=== PATIENT | female | born 2005 | race Caucasian/White ===

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

== ENCOUNTER → 2024-04-11 | Outpatient (CLI) | payer OTHER, SELFPAY ==
[2024-04-11 17:52] LABS: Absolute Lymphocyte Count 2.06 X10^3/uL (0.83-4.51); Absolute Neutrophil Count 4.2 X10^3/uL (2.0-7.7); Basophil# 0.07 X10^3/uL; Eosinophil# 0.17 X10^3/uL; Eosinophils% 2.4 % (0-5); Hematocrit 36.1 % (37-47); Hemoglobin 10.8 g/dL (12.0-15.0); Lymphocyte # 2.06 X10^3/ul (0.83-4.51); Lymphocyte % 29.1 % (19-41); Mean Corp Hgb Conc 29.9 g/dL (32-36); Mean Platelet Vol. 10.5 fl (6.2-12.0); Monocyte# 0.52 X10^3/uL; Monocyte% 7.3 % (0-10); NRBC Flagged by Analyzer 0 % (0-5); Neutrophil # 4.24 X10^3/uL (2.7-7.7); Neutrophil % 59.9 % (47-70); Platelet Count 362 K/mm3 (150-450); RBC Distribution Width CV 16.3 % (11.6-14.6); RBC Distribution Width SD 44.9 fl (35.1-43.9); Red Blood Count 4.69 M/mm3 (4.2-5.4); White Blood Count 7.1 K/mm3 (4.4-11.0)
[2024-04-11 18:32] LABS: Ferritin 4 ng/mL (8-252); Iron 16 ug/dL (50-170); Iron Binding Capacity,Total 602 ug/dL (250-450); PERCENT IRON SATURATION 2.7 % (15.0-55.0)
[2024-04-11 19:49] LABS: Vitamin B12 331 pg/mL (211-911)
== END | disposition home or self-care (01) ==
LOC: MFPLAB 14:23
PROVIDERS: PCP Family Medicine; Visit Provider Family Medicine
DX: D50.9 Iron deficiency anemia, unspecified (principal)
CPT/HCPCS: 36415; 82607; 82728; 82746; 83540; 83550; 85025

== ENCOUNTER 2025-01-20 15:36 | Emergency (ER) | payer OTHER, SELFPAY ==
[2025-01-20 15:36] VITALS: BP 123/92; PULSE 112; RESP 18; TEMP 36.6; O2SAT 100; BMI 23.0
--- NOTE | 2025-01-20 16:08 | EDS_ITS ---
HPI History of Present Illness Chief Complaint: Dizziness Informant: patient Onset/Context/Timing Onset: Today and Hours (3) Context: Gradual Onset Timing: Continuous Quality: Squeezing Location: Chest Worsened by: Nothing Relieved by: Nothing Narrative Narrative: Patient presents with shaky feeling that began today while she was at work. Patient states it came on gradually. Patient states that she felt some squeezing in her chest. Patient states nothing makes it worse and nothing makes it better. Patient admits to some shortness of breath. Patient denies any nausea or vomiting. Patient denies any diaphoresis. Patient admits to some blurred vision. Patient also admits to mild headache. Patient denies any fevers or chills. PFSH PFSH Medical History no medical history no medical history Home Medications ?Medication ?Instructions ?Recorded ?Last Taken ?Type Albuterol Inhaler 2 puff inhalation Q6H PRN SD N Sob 12/16/17 Unknown History &/Or Wheezing Allergy/AdvReac Type Severity Reaction Status Date / Time No Known Allergies Allergy Verified 01/20/25 15:40 Surgical History no surgical history no surgical history Social History (Updated 01/20/25 @ 16:[address] Reynold Nolasco, DO) Smoking Status: Current every day smoker tobacco type: e-cigarettes Electronic Cigarette Use: with nicotine ROS ROS ED Constitutional Constitutional ED: Denies chills or fever(s) Eyes Eyes: Reports blurry vision; Denies change in vision ENT ENT ED: Denies rhinorrhea or sore throat Cardiovascular Cardiovascular: Reports chest pain; Denies palpitations Respiratory/Chest Respiratory/Chest: Reports dyspnea; Denies cough Gastrointestinal Gastrointestinal: Denies nausea or vomiting Genitourinary Genitourinary ED: Denies dysuria or hematuria Musculoskeletal Musculoskeletal: Reports neck pain; Denies back pain Integumentary Denies abscess or rash Neurologic Neurologic: Reports headache(s); Denies weakness Allergic/Immunologic Allergic/Immunologic ED: Denies mouth swelling or urticaria EXAM Physical Exam Const Vital Signs: 01/20/25 15:36 01/20/25 16:36 01/20/25 17:36 Temperature 97.8 F Temperature Source Temporal Pulse Rate 112 H 92 Respiratory Rate 18 19 H Blood Pressure 123/92 H 126/81 H Blood Pressure Mean 102 96 Pulse Ox 100 Oxygen Delivery Method Room Air Room Air Positive well nourished and well developed General Appearance ED: well developed and NAD HEENT Reports moist mucous membranes Neck supple and no JVD Resp normal respiratory effort and clear to auscultation bilaterally Cardio regular rate and regular rhythm GI non-tender and non-distended Palpation: soft Extremity normal to inspection General Extremety ED: Negative for edema or tenderness General Extremity: Negative for edema Neuro oriented x3, CN's II-XII intact bilaterally and no sensory deficits noted Sensorium / Orientation: alert Motor Exam: strength 5/5 throughout Psych mental status grossly normal MDM MDM MDM Narrative Medical decision making narrative: Differential diagnosis includes pneumonia, bronchitis, cardiac dysrhythmia, cardiac ischemia, electrolyte abnormality, gastroesophageal reflux disease, musculoskeletal pain, and anxiety. EKG will be obtained to assess for cardiac dysrhythmia and cardiac ischemia. Chest x-ray will be obtained to assess for pneumonia and bronchitis. CBC will be obtained to assess for leukocytosis and anemia. Basic metabolic profile will be obtained to assess for electrolyte abnormality and renal function. Serum hCG will be obtained to assess for . Urinalysis will be obtained to assess for urinary tract infection and hematuria. History & Record Review Additional record(s) reviewed:: Prior labs Lab Data Attestation: I reviewed the patient's lab results. Lab results narrative: CBC was reviewed and was essentially within normal limits. Basic metabolic profile was reviewed and was within normal limits. High-sensitivity troponin was reviewed and was less than 6. Serum hCG was repeated and was negative. Urinalysis was reviewed. There is no evidence of urinary tract infection or hematuria. Labs: Laboratory Results - last 24 hr 01/20/25 01/20/25 16:30 16:35 WBC 7.1 RBC 5.48 H Hgb 15.7 H Hct 48.0 H MCV 87.6 MCH 28.6 MCHC 32.7 RDW Std Deviation 41.9 RDW Coeff of Lakshmi 13.0 Plt Count 370 MPV 9.2 Immature Gran % (Auto) 0.600 Neut % (Auto) 65.3 Lymph % (Auto) 25.1 [place] % (Auto) 6.2 Eos % (Auto) 1.8 Baso % (Auto) 1.0 Absolute Neuts (auto) 4.6 Absolute Lymphs (auto) 1.77 Nucleated RBC % 0 Sodium 142 Potassium 3.5 Chloride 106 Carbon Dioxide 24.5 Anion Gap 12 BUN 8 Creatinine 0.82 Estim Creat Clear Calc 86.55 Est GFR (MDRD) Non-Af 106 BUN/Creatinine Ratio 9.7 L Glucose 96 Calcium 9.5 Troponin T High Sens < 6 Serum , Qual NEGATIVE Urine Color Yellow Urine Clarity Clear Urine pH 6.0 Ur Specific [place] 1.015 Urine Protein Negative Urine Glucose (UA) Normal Urine Ketones Negative Urine Occult Blood 25 H Urine Nitrite Negative Urine Bilirubin Negative Urine Urobilinogen Normal Ur Leukocyte Esterase Negative Urine RBC 0-5 SEEN Urine WBC 0 SEEN Ur Squamous Epith Cells 0 SEEN Urine Bacteria 0 SEEN Urine Mucus 0 SEEN Radiography Chest X-Ray - ED: 2 View, Read by ED Physician, Read by Radiologist and No Acute Disease Diagnostic Testing: Clinical Impression(s) from Imaging Studies Chest X-Ray 01/20/25 16:18 IMPRESSION: No acute cardiopulmonary process. Reading Location: [facility] [place] and lateral chest x-ray was obtained. There are 2 views. On my independent interpretation, lung jamison are clear. There is normal cardiac silhouette. Bony thorax is normal. There is no acute process noted. Radiologist also interpreted the x-ray and agrees. EKG Initial EKG: Attestation: I personally reviewed and interpreted this EKG as follows: Interpretation: Sinus Rhythm (84) and No Acute Injury Pattern Comments: EKG was obtained. On my independent interpretation, it showed a normal sinus rhythm with a rate of 84. SD interval, QRS interval, and QTc intervals were all normal. [place] was normal. There are no acute ST or T wave changes. Prior EKG tracings: not available for review Prior: No Prior Treatment and Re-Evaluation :: Patient was given IV fluids. Patient was feeling better on reevaluation. Patient was advised of findings. Patient was instructed to drink plenty of fluids. Patient was instructed to follow-up with her [facility] physician in 5 to 6 days. Patient was instructed to return if worse in any way. Patient understood and was agreeable with the plan. All questions were answered. Discharge Plan Triage Chief Complaint: Dizziness ED Provider: Reynold Nolasco Dx/Rx/DC Orders Clinical Impression: Dizziness Instructions: ED Dizziness, Uncertain Cause Prescriptions: No Action Albuterol Inhaler 2 puff inhalation Q6H PRN PRN (Reason: Sob &/Or Wheezing) Primary Care Provider: Kishore Sam Referrals: Kishore Sam MD [Primary Care Provider] - 3-5 Days Reynold Yang MD [Med Staff - Chemistry Laboratory Technician] - 3-5 Days Print Language: Maori Disposition Disposition: Home, Self Care
--- NOTE | 2025-01-20 16:18 | RAD_ITS ---
EXAM: XR Chest, 2 Views CLINICAL INDICATION: CHEST PAIN TECHNIQUE: Frontal and lateral views of the chest. COMPARISON: No relevant prior studies available. FINDINGS: LUNGS AND PLEURAL SPACES: Unremarkable. No consolidation. No pneumothorax. HEART: Unremarkable. No cardiomegaly. MEDIASTINUM: Unremarkable. Normal mediastinal contour. BONES/JOINTS: Unremarkable. No acute fracture. RAD/Chest PA and Lateral IMPRESSION: No acute cardiopulmonary process. Reading Location: [id number]
--- NOTE | 2025-01-20 16:18 | EKG12_ITS ---
Test Reason : Blood Pressure : */* mmHG Vent. Rate : 84 BPM Atrial Rate : 84 BPM P-R Int : 118 ms QRS Dur : 82 ms QT Int : 370 ms P-R-T Axes : 59 78 62 degrees QTcB Int : 437 ms Normal sinus rhythm with sinus arrhythmia Normal ECG Confirmed by Fly Chowdhury ([id number]), book or script editor FARHAN BROCK ([id number]) on 01/24/2025 11:41:46 AM Referred By: Confirmed By: Fly Chowdhury
[2025-01-20] MEDS: Aspirin 81 MG TAB.CHEW 324 MG PO (16:34)
[2025-01-20] MEDS: 0.9% Normal Saline (1000mL) 1,000 ML 999 ML IV (16:34)
[2025-01-20 16:48] LABS: Bacteria 0 SEEN /hpf (None Seen); Mucous, Urine 0 SEEN /hpf (<or=2+); Squamous Epithelial Cells - UA 0 SEEN /hpf (5-10); White Blood Cells 0 SEEN /hpf (0-5)
[2025-01-20 16:59] LABS: Absolute Lymphocyte Count 1.77 X10^3/uL (0.83-4.51); Absolute Neutrophil Count 4.6 X10^3/uL (2.0-7.7); Basophil# 0.07 X10^3/uL; Eosinophil# 0.13 X10^3/uL; Eosinophils% 1.8 % (0-5); Hemoglobin 15.7 g/dL (12.0-15.0); Lymphocyte # 1.77 X10^3/ul (0.83-4.51); Lymphocyte % 25.1 % (19-41); Mean Corp Hgb Conc 32.7 g/dL (32-36); Mean Corpuscular Hgb 28.6 pg (27.0-32.0); Mean Corpuscular Volume 87.6 fL (81-99); Mean Platelet Vol. 9.2 fl (6.2-12.0); Monocyte# 0.44 X10^3/uL; Monocyte% 6.2 % (0-10); NRBC Flagged by Analyzer 0 % (0-5); Neutrophil # 4.61 X10^3/uL (2.7-7.7); Neutrophil % 65.3 % (47-70); Platelet Count 370 K/mm3 (150-450); RBC Distribution Width SD 41.9 fl (35.1-43.9); Red Blood Count 5.48 M/mm3 (4.2-5.4); White Blood Count 7.1 K/mm3 (4.4-11.0)
[2025-01-20 17:06] LABS: Internal QC Validated? YES +Cl - CLEAR BKGD; Pregnancy, Serum, hCG Quali. NEGATIVE Negative
[2025-01-20 17:16] LABS: Anion Gap 12 (5-15); BUN 8 mg/dL (4-19); BUN/Creat Ratio 9.7 RATIO (10-20); Calcium,Total 9.5 mg/dL (7.6-11.0); Carbon Dioxide 24.5 mmol/L (21.0-32.0); Chloride 106 mmol/L (98-108); Creatinine, Serum 0.82 mg/dL (0.70-1.20); EST Glomerular Filtration Rate 106 (>60); Estimated Creatinine Clearance 86.55 ml/min (50-250); Glucose 96 mg/dL (70-99); Potassium 3.5 mmol/L (3.3-5.1); Sodium Level 142 mmol/L (133-145); Troponin T High Sensitivity < 6 ng/L (<=14)
[2025-01-20 17:20] LABS: Color, Urine Yellow (Yellow); Glucose, Dipstick Normal (Normal); Ketone-Dipstick Negative (Negative); Leukocyte Esterase-Dipstick Negative /ul (Negative); Nitrite-Dipstick Negative (Negative); Occult Blood-Urine 25 /ul (Negative); Protein-Dipstick Negative (Negative); Specific Gravity, Urine 1.015 (1.002-1.030); Urine Bilirubin Dipstick Negative (Negative); Urine Clarity Clear (Clear); Urine Urobilinogen Normal (Normal)
[2025-01-20 17:36] VITALS: BP 126/81; PULSE 92; RESP 19
[2025-01-20 17:48] LABS: Red Blood Cells-Urine 0-5 SEEN /hpf (0-5)
[2025-01-20 19:05] VITALS: BP 129/86; PULSE 89; RESP 14; TEMP 36.6; O2SAT 97
[2025-01-26 05:28] LABS: Ferritin 85 ng/mL (22-378); Iron 93 ug/dL (50-170); Magnesium 2.3 mg/dL (1.5-2.2); Thyroid Stim Hormone (TSH) 0.678 uIU/mL (0.300-4.200)
== END 2025-01-20 19:09 | disposition home or self-care (01) ==
PROVIDERS: Emergency Provider Emergency Medicine; PCP Family Medicine; Visit Provider Emergency Medicine
DX: R42 Dizziness and giddiness (principal); R51.9 Headache, unspecified; R06.02 Shortness of breath; R07.89 Other chest pain; F17.290 Nicotine dependence, other tobacco product, uncomplicated
CPT/HCPCS: 71046; 80048; 81001; 82728; 83540; 83735; 84443; 84484; 84703; 85025; 93005; 96360; 99284; A4216

== ENCOUNTER → 2025-04-05 | Outpatient (CLI) | payer OTHER, SELFPAY ==
[2025-04-05 18:26] LABS: Hematocrit 44.4 % (37-47); Hemoglobin 14.7 g/dL (12.0-15.0); Immature Granulocytes Count 0.020 X10^3/uL (0.0-0.0); Mean Corp Hgb Conc 33.1 g/dL (32-36); Mean Corpuscular Volume 89.3 fL (81-99); Mean Platelet Vol. 9.9 fl (6.2-12.0); NRBC Flagged by Analyzer 0 % (0-5); Platelet Count 375 K/mm3 (150-450); RBC Distribution Width CV 12.8 % (11.6-14.6); RBC Distribution Width SD 41.8 fl (35.1-43.9); Red Blood Count 4.97 M/mm3 (4.2-5.4); White Blood Count 6.1 K/mm3 (4.4-11.0)
[2025-04-05 18:33] LABS: hCG Titer Quant., Serum < 1 mIU/mL (<9 non-preg)
[2025-04-05 18:50] LABS: AST(SGOT) 16 U/L (<=31); Alanine Aminotransfer ALT/SGPT 14 U/L (<=34); Albumin, Serum 4.3 g/dL (3.5-5.0); Alkaline Phosphatase 70 U/L (35-104); Anion Gap 11 (5-15); BUN 8 mg/dL (4-19); BUN/Creat Ratio 8.4 RATIO (10-20); Calcium,Total 10.3 mg/dL (7.6-11.0); Carbon Dioxide 22.3 mmol/L (21.0-32.0); Chloride 106 mmol/L (98-108); Ferritin 104 ng/mL (22-378); Globulin 3.1 g/dL (2.2-4.2); Glucose 86 mg/dL (70-99); Potassium 4.8 mmol/L (3.3-5.1); Vitamin B12 350 pg/mL (180-914); Vitamin D,25 Hydroxy 54.6 ng/mL (30-100)
[2025-04-05 19:12] LABS: Iron 114 ug/dL (50-170)
--- OUTSIDE RECORDS SUMMARY | 2025-04-06 00:24 | XMS RPT_ITS | CCD ---
Author Organization [facility] Care Team Providers Care Linen Attendant Name Role Phone Vaishnavi DO Buster D Primary Care Provider Olivia vailable VAISNHAVI, BUSTER D Primary Care Unavailable VAISHNAVI, BUSTER D Primary Care Unavailable YUEN, KELLY Referring Unavailable VAISHNAVI, BUSTER D Primary Care Unavailable YUEN, KELLY Referring Unavailable VAISHNAVI, BUSTER D Primary Care Unavailable YUEN, KELLY Referring Unavailable VAISHNAVI, BUSTER D Primary Care Unavailable YUEN, KELLY Referring Unavailable VAISHNAVI, BSUTER D Primary Care Unavailable VAISHNAVI, BUSTER D Primary Care Unavailable YUEN, KELLY Referring Unavailable VAISHNAVI, BUSTER D Primary Care Unavailable YUEN, KELLY Referring Unavailable VAISHNAVI, BUSTER D Primary Care Unavailable YUEN, KELLY Referring Unavailable VAISHNAVI, BUSTER D Primary Care Unavailable YUEN, KELLY Attending Unavailable VAISHNAVI, BUSTER D Primary Care Unavailable VAISHNAVI, BUSTER D Primary Care Unavailable VAISHNAVI, BUSTER D Primary Care Unavailable Aurora DO, Buster D Primary Care Provider [phone] Dr. Reynold Nolasco DO Emergency Provider Dr. Kishore Sam MD Primary Care Provider Reynold Yang Primary Care Unavailable Reynold Yang Attending Unavailable Kishore Sam Primary Care Unavailable Reynold Nolasco Attending Unavailable Allergies Allergy Classification Reported Allergen(s) Allergy Type Date of Onset Reaction(s) Facility (16 sources) Bee Venom Protein (Honey Bee); Translations: [BEE VENOM PROTEIN (HONEY BEE)] Drug Allergy 04-01-2022 [facility] Medications Current Medications Medication Drug Class(es) Dates Sig (Normalized) Sig (Original) Ethinyl Estradiol / norgestimate (15 sources) Progestin, Estrogen Start: 11-23-2020 take 1 tablet by mouth once daily TRI FEMYNOR 0.18/0.215/0.25 mg-35 mcg (28) Take 1 tablet by mouth once daily. 11/23/2020 Active Start: 11-23-2020 take 1 tablet by robby th once daily TRI FEMYNOR 0.18/0.215/0.25 mg-35 mcg (28) Take 1 tablet by mouth once daily. 0 11/23/2020 Active Comment on above: Take 1 tablet by robby th once daily. ferrous sulfate 325 mg oral tablet (1 source) take 1 tablet by mouth three times weekly ferrous sulfate (IRON) 325 mg (65 mg iron) tablet Take 325 mg by mouth three times a week. Active fluconazole 150 mg oral tablet (1 source) Azole Antifungal Start: 2021 End: 2021 fluconazole (DIFLUCAN) 150 mg tablet Take 1 tablet by mouth one time only for 1 dose. Repeat in 3 days as needed. 2 tablet 0 04/01/2022 04/01/2022 Active Comment on above: Take 1 tablet by robby one time only for 1 dose. Repeat in 3 days as needed. methylPREDNISolone (2 sources) Corticosteroid Start: 2023 End: 2023 methylPREDNISolone (MEDROL, MARY,) 4 mg Dose-Pack Indications: Allergic reaction, initial encounter , Bee sting, undetermined intent, initial encounter Follow dosing instructions, take with food. 21 tablet 04/05/2024 04/11/2024 Active Completed/Discontinued Medications Medication Drug Class(es) Dates Sig (Normalized) Sig (Original) [id number] 200 actuat albuterol 0.09 mg/actuat metered dose inhaler (6 sources) beta2-Adrenergic Agonist Start: 12-29-2023 End: 05-05-2024 take 2 puff(s) by inhalation every four hours as needed for wheezing albuterol HFA (PROVENTIL HFA, VENTOLIN HFA) 90 mcg/actuation inhaler Inhale 2 Puffs as instructed every 4 hours as needed for wheezing/shortness of breath. 8 g 12/29/2023 05/05/2024 Discontinued (Discontinued by Patient) Start: 12-16-2017 Albuterol Inha ler Active 2 NMA INHALATION EVERY 6 HOURS NEEDED as needed for Sob &/Or Wheezing December 16, 2017 12:00am Start: 12-16-2017 take 1 puff(s) by in halation every six hours as needed Albuterol Inhaler Active 2 PUFF INHALATION EVERY 6 HOURS NEEDED December 16, 2017 12:00am benzonatate 100 mg oral capsule (4 sources) Non-narcotic Antitussive Start: 12-29-2023 End: 05-05-2024 take 1 capsule by mouth every eight hours as needed benzonatate (TESSALON PERLES) 100 mg capsule Take 1 capsule by mouth three times a day as needed for cough. 21 capsule 12/29/2023 05/05/2024 Discontinued (Discontinued by Patient) 10 ml iron sucrose 20 mg/ml injection (5 sources) Parenteral Iron Replacement Start: 05-26-2024 End: 05-26-2024 200 mg, INTRAVENOUS, ONCE, 1 dose, On Marlena 05/26/24 at 1500, Please conduct a 30 minute post dose observation. Start: 05-24-2024 End: 05-24-2024 200 mg, INTRAVENOUS, ONCE, 1 dose, On Thu05/24/24 at 1530, Please conduct a 30 minute post dose observation. Start: 05-20-2024 End: 05-20-2024 200 mg, INTRAVENOUS, ONCE, 1 dose, On Thu05/20/24 at 1600, Please conduct a 30 minute post dose observation. Start: 05-18-2024 End: 05-18-2024 200 mg, INTRAVENOUS, ONCE, 1 dose, On Thu05/18/24 at 0830, Please conduct a 30 minute post dose observation. -IVP over 5-10 minutes Start: 05-16-2024 End: 05-16-2024 200 mg, INTRAVENOUS, ONCE, 1 dose, On Thu05/16/24 at 0800, Please conduct a 30 minute post dose observation. predniSONE 10 mg oral tablet (5 sources) Start: 03-20-2022 End: 04-05-2024 predniSONE (DELTASONE) 10 mg tablet TAKE 4 TABLETS DAILY for 3 days then TAKE 3 TABLETS DAILY for 3 days then TAKE 2 TABLETS DAILY for 3 days then TAKE 1 TABLET DAILY for 3 days 03/20/2022 04/05/2024 Discontinued (Course of therapy completed) Comment on above: TAKE 4 TABLETS DAILY for 3 days then TAKE 3 TABLETS DAILY for 3 days then TAKE 2 TABLETS DAILY for 3 days then TAKE 1 TABLET DAILY for 3 days Problems Active Problems Problem Classification Problem Date Documented Date Episodic/Chronic Administrative/social admission (2 sources) Special examination status; Translations: [Encounter for examination for participation in sport] 03-02-2019 Episodic Allergic reactions (1 source) Allergic reaction; Translations: [Allergy, unspecified, initial encounter] 04-05-2024 Episodic Conditions associated with dizziness or vertigo (2 sources) Dizziness; Translations: [Dizziness and giddiness] Onset: 01-27-2025 01-20-2025 Episodic Deficiency and other anemia (15 sources) Iron deficiency anemia due to blood loss; Translations: [Iron deficiency anemia secondary to blood loss (chronic)] Onset: 05-05-2024 05-05-2024 Chronic Deficiency and other anemia (1 source) Iron deficiency anemia secondary to blood loss (chronic); Translations: [Iron deficiency anemia due to chronic blood loss] Onset: 05-05-2024 Chronic Inflammatory diseases of female pelvic organs (1 source) Acute vaginitis; Translations: [Acute vaginitis] Episodic Menstrual disorders (1 source) Menorrhagia; Translations: [Excessive and frequent menstruation with regular cycle] 07-07-2024 Chronic Other hematologic conditions (1 source) H/O: anemia - iron deficient; Translations: [Personal history of diseases of the blood and blood-forming organs and certain disorders involving the immune mechanism] 07-07-2024 Episodic Other lower respiratory disease (2 sources) Cough; Translations: [Acute cough] 12-29-2023 Episodic Other upper respiratory infections (3 sources) Sore throat symptom; Translations: [Acute pharyngitis, unspecified] Episodic Poisoning by nonmedicinal substances (1 source) Bee sting; Translations: [Toxic effect of venom of bees, undetermined, initial encounter] 04-05-2024 Episodic Residual codes; unclassified (1 source) Procedure not done; Translations: [Procedure and treatment not carried out, unspecified reason] 04-08-2024 Episodic Unclassified (1 source) Acute cough; Translations: [Acute cough] Onset: 12-29-2023 Past or Other Problems Problem Classification Problem Date Documented Da te Episodic/Chronic Deficiency and other anemia (1 source) Iron deficiency anemia, unspecified; Translations: [Iron deficiency anemia, unspecified] Onset: 05-02-2024 Episodic Fever of unknown origin (3 sources) Fever; Translations: [Fever, unspecified] Onset: 12-29-2023 12-29-2023 Episodic Results Test Name Value Interpretation Reference Range Facility Ferritinon 01-26-2025 Ferritin [Mass/Vol] 85 ng/mL Normal 22-378 [facility] Comment on above: Order Comment: CRISTINO Lee ADD TSH KAROLINE FE MAG TO BLOOD DRAWN 01/20/25 PER Performed By: #### L 100.0100, L503.6550, L501.4021, L501.9520, L501.5200, L500.2500, L503.6150 #### [facility] [address] [place], [address] Ironon 01-26-2025 Iron [Mass/Vol] 93 ug/dL Normal 50-170 [facility] Comment on above: Order Comment: CRISTINO Lee ADD TSH KAROLINE FE MAG TO BLOOD DRAWN 01/20/25 PER Performed By: #### L 100.0100, L503.6550, L501.4021, L501.9520, L501.5200, L500.2500, L503.6150 #### [facility] [address] [place], [place], [id number] Magnesiumon 01-26-2025 Magnesium [Mass/Vol] 2.3 mg/dL High 1.5-2.2 [facility] Comment on above: Order Comment: CRISTINO Lee ADD TSH KAROLINE FE MAG TO BLOOD DRAWN 01/20/25 PER Performed By: #### L 100.0100, L503.6550, L501.4021, L501.9520, L501.5200, L500.2500, L503.6150 #### [facility] [address] [place], [place], [id number] Thyroid Stim Hormone (TSH)on 01-26-2025 TSH 0.678 uIU/mL Normal 0.300-4.200 [facility] Comment on above: Order Comment: CRISTINO Lee ADD TSH KAROLINE FE MAG TO BLOOD DRAWN 01/20/25 PER Performed By: #### L 100.0100, L503.6550, L501.4021, L501.9520, L501.5200, L500.2500, L503.6150 #### [facility] [address] [place], [address] 12 Lead EKGon 01-20-2025 12 Lead EKG [facility] [address] [place] [address] 12 Lead EKG 01/20/25 1639 MR#: [id number] Acct: [id number] Name: NANI HIDALGO Rep #: [id number] : 2005 From: Fly Chowdhury MD Attending Dr: Status: DEP ER Ordering Dr: Reynold Nolasco DO Date: 01/20/25 Location: ED Sex: F C Admitted: Test Reason : Blood Pressure : */* mmHG Vent. Rate : 84 BPM Atrial Rate : 84 BPM P-R Int : 118 ms QRS Dur : 82 ms QT Int : 370 ms P-R-T Axes : 59 78 62 degrees QTcB Int : 437 ms Normal sinus rhythm with sinus arrhythmia Normal ECG Confirmed by Fly Chowdhury ([id number]), associate entertainment editor FARHAN BROCK ([id number]) on 01/24/2025 11:41:46 AM Referred By: Confirmed By: Fly Chowdhury 01/24/25 1141 Date Fly Chowdhury MD CC: Dr. Kishore Sam MD; Dr. Reynold Nolasco DO Signed Normal [facility] Absolute lymphocyte countOrd ered By: Reynold Nolasco on 01-20-2025 Lymphocytes Auto (Unsp spec) [#/Vol] 1.77 10*3/uL 0.83-4.51 [facility] Absolute neutrophil countOrd ered By: Reynold Nolasco on 01-20-2025 Neutrophils (Bld) [#/Vol] 4.6 10*3/uL 2.0-7.7 [facility] Anion gap in Serum or Plasma Ordered By: Reynold Nolasco on 01-20-2025 Anion gap [Moles/Vol] 12 mmol/L 5-15 [facility] Automated lymphocyte count a s percentage of total leukocytesOrdered By: Reynold Nolasco on 01-20-2025 Lymphocytes/100 WBC Auto (Unsp spec) 25.1 % 19-41 [facility] BUN/creatinine ratioOrdered By: Reynold Nolasco on 01-20-2025 Urea nitrogen/Creatinine [Mass ratio] 9.7 mg/mg Low 10- [facility] Basic Metabolic Profile (BMP )on 01-20-2025 BUN/CRE 9.7 RATIO Low 05-22 [facility] Comment on above: Performed By: #### L 100.0100, L503.6550, L501.4021, L501.9520, L501.5200, L500.2500, L503.6150 #### [facility] [address] [place], [address] Calcium [Mass/Vol] 9.5 mg/dL Normal 7.6-11.0 [facility] Comment on above: Performed By: #### L 100.0100, L503.6550, L501.4021, L501.9520, L501.5200, L500.2500, L503.6150 #### [facility] [address] [place], [address] Chloride [Moles/Vol] 106 mmol/L Normal 98-108 [facility] Comment on above: Performed By: #### L 100.0100, L503.6550, L501.4021, L501.9520, L501.5200, L500.2500, L503.6150 #### [facility] [address] [place], [address] CO2 [Moles/Vol] 24.5 mmol/L Normal 21.0-32.0 [facility] Comment on above: Performed By: #### L 100.0100, L503.6550, L501.4021, L501.9520, L501.5200, L500.2500, L503.6150 #### [facility] [address] [place], [address] Creatinine [Mass/Vol] 0.82 mg/dL Normal 0.70-1.20 [facility] Comment on above: Performed By: #### L 100.0100, L503.6550, L501.4021, L501.9520, L501.5200, L500.2500, L503.6150 #### [facility] [address] [place], [address] ECRCL 86.55 ml/min Normal 50-250 [facility] Comment on above: Performed By: #### L 100.0100, L503.6550, L501.4021, L501.9520, L501.5200, L500.2500, L503.6150 #### [facility] [address] [place], [address] GAP 12 Normal 5-15 [facility] Comment on above: Performed By: #### L 100.0100, L503.6550, L501.4021, L501.9520, L501.5200, L500.2500, L503.6150 #### [facility] [address] [place], [address] GFR/1.73 sq M.predicted among non-blacks MDRD (S/P/Bld) [Vol rate/Area] 106 mL/min/{1.73_m2} Normal >60 [facility] Comment on above: Result Comment: mL/m in/1.73m2 CKD-EPI Creatinine Equation (2020) Performed By: #### L 100.0100, L503.6550, L501.4021, L501.9520, L501.5200, L500.2500, L503.6150 #### [facility] [address] [place], [address] Glucose [Mass/Vol] 96 mg/dL Normal 70-99 [facility] Comment on above: Performed By: #### L 100.0100, L503.6550, L501.4021, L501.9520, L501.5200, L500.2500, L503.6150 #### [facility] [address] [place], [address] Potassium [Moles/Vol] 3.5 mmol/L Normal 3.3-5.1 [facility] Comment on above: Performed By: #### L 100.0100, L503.6550, L501.4021, L501.9520, L501.5200, L500.2500, L503.6150 #### [facility] [address] [place], [address] Sodium [Moles/Vol] 142 mmol/L Normal 133-145 [facility] Comment on above: Performed By: #### L 100.0100, L503.6550, L501.4021, L501.9520, L501.5200, L500.2500, L503.6150 #### [facility] [address] [place], [address] Urea nitrogen [Mass/Vol] 8 mg/dL Normal 4-19 [facility] Comment on above: Performed By: #### L 100.0100, L503.6550, L501.4021, L501.9520, L501.5200, L500.2500, L503.6150 #### [facility] [address] [place], [address] Basophil percentageOrdered B y: Reynold Nolasco on 01-20-2025 Basophils/100 WBC (Bld) 1.0 % 0-1 [facility] Bilirubin Test strip Ql (U)O rdered By: Reynold Nolasco on 01-20-2025 Bilirubin Ql (U) Negative Negative [facility] CBC W/Diff, Automatedon 01-02 Absolute Lymph 1.77 X10 3/uL Normal 0.83-4.51 [facility] Comment on above: Performed By: #### L 100.0100, L503.6550, L501.4021, L501.9520, L501.5200, L500.2500, L503.6150 #### [facility] [address] [place], [address] Absolute Neut 4.6 X10 3/uL Normal 2.0-7.7 [facility] Comment on above: Performed By: #### L 100.0100, L503.6550, L501.4021, L501.9520, L501.5200, L500.2500, L503.6150 #### [facility] [address] [place], [address] Basophils/100 WBC (Bld) 1.0 % Normal 0-1 [facility] Comment on above: Performed By: #### L 100.0100, L503.6550, L501.4021, L501.9520, L501.5200, L500.2500, L503.6150 #### [facility] [address] [place], [address] Eosinophils/100 WBC (Bld) 1.8 % Normal 0-5 [facility] Comment on above: Performed By: #### L 100.0100, L503.6550, L501.4021, L501.9520, L501.5200, L500.2500, L503.6150 #### [facility] [address] [place], [address] Erythrocyte distribution width (RBC) [Ratio] 13.0 % Normal 11.6-14.6 [facility] Comment on above: Performed By: #### L 100.0100, L503.6550, L501.4021, L501.9520, L501.5200, L500.2500, L503.6150 #### [facility] [address] [place], [address] Hematocrit (Bld) [Volume fraction] 48.0 % High 37-47 [facility] Comment on above: Performed By: #### L 100.0100, L503.6550, L501.4021, L501.9520, L501.5200, L500.2500, L503.6150 #### [facility] [address] [place], [address] Hemoglobin (Bld) [Mass/Vol] 15.7 g/dL High 12.0-15.0 [facility] Comment on above: Performed By: #### L 100.0100, L503.6550, L501.4021, L501.9520, L501.5200, L500.2500, L503.6150 #### [facility] [address] [place], [address] IG% 0.600 Normal 0.0-0.9 [facility] Comment on above: Result Comment: IG% - Immature Granulocytes (promyelocytes, myelocytes and metamyelocytes) > 1% indicates that a LEFT SHIFT is Present. Performed By: #### L 100.0100, L503.6550, L501.4021, L501.9520, L501.5200, L500.2500, L503.6150 #### [facility] [address] [place], [address] Lymphocytes/100 WBC (Bld) 25.1 % Normal 19-41 [facility] Comment on above: Performed By: #### L 100.0100, L503.6550, L501.4021, L501.9520, L501.5200, L500.2500, L503.6150 #### [facility] [address] [place], [address] MCH (RBC) [Entitic mass] 28.6 pg Normal 27.0-32.0 [facility] Comment on above: Performed By: #### L 100.0100, L503.6550, L501.4021, L501.9520, L501.5200, L500.2500, L503.6150 #### [facility] [address] [place], [address] MCHC (RBC) [Mass/Vol] 32.7 g/dL Normal 32-36 [facility] Comment on above: Performed By: #### L 100.0100, L503.6550, L501.4021, L501.9520, L501.5200, L500.2500, L503.6150 #### [facility] [address] [place], [address] MCV (RBC) [Entitic vol] 87.6 fL Normal 81-99 [facility] Comment on above: Performed By: #### L 100.0100, L503.6550, L501.4021, L501.9520, L501.5200, L500.2500, L503.6150 #### [facility] [address] [place], [address] Monocytes/100 WBC (Bld) 6.2 % Normal 0-10 [facility] Comment on above: Performed By: #### L 100.0100, L503.6550, L501.4021, L501.9520, L501.5200, L500.2500, L503.6150 #### [facility] [address] [place], [address] Neutrophils/100 WBC (Bld) 65.3 % Normal 47-70 [facility] Comment on above: Performed By: #### L 100.0100, L503.6550, L501.4021, L501.9520, L501.5200, L500.2500, L503.6150 #### [facility] [address] [place], [address] Nucleated RBC (Bld) [#/Vol] 0 10*3/uL Normal 0-5 [facility] Comment on above: Performed By: #### L 100.0100, L503.6550, L501.4021, L501.9520, L501.5200, L500.2500, L503.6150 #### [facility] [address] [place], [address] Platelet mean volume (Bld) [Entitic vol] 9.2 fL Normal 6.2-12.0 [facility] Comment on above: Performed By: #### L 100.0100, L503.6550, L501.4021, L501.9520, L501.5200, L500.2500, L503.6150 #### [facility] [address] [place], [address] Platelets (Bld) [#/Vol] 370 10*3/uL Normal 150-450 [facility] Comment on above: Performed By: #### L 100.0100, L503.6550, L501.4021, L501.9520, L501.5200, L500.2500, L503.6150 #### [facility] [address] [place], [address] RBC (Bld) [#/Vol] 5.48 10*6/uL High 4.2-5.4 [facility] Comment on above: Performed By: #### L 100.0100, L503.6550, L501.4021, L501.9520, L501.5200, L500.2500, L503.6150 #### [facility] [address] [place], [address] RDW SD 41.9 fl Normal 35.1-43.9 [facility] Comment on above: Performed By: #### L 100.0100, L503.6550, L501.4021, L501.9520, L501.5200, L500.2500, L503.6150 #### [facility] [address] [place], [address] WBC (Bld) [#/Vol] 7.1 10*3/uL Normal 4.4-11.0 [facility] Comment on above: Performed By: #### L 100.0100, L503.6550, L501.4021, L501.9520, L501.5200, L500.2500, L503.6150 #### [facility] [address] [place], [address] Carbon dioxide, total [Moles /volume] in Central venous bloodOrdered By: Reynold Nolasco on 01-20-2025 CO2 [Moles/Vol] 24.5 mmol/L 21.0-32.0 [facility] Chest PA and Lateralon 01-20 Chest PA and Lateral [facility] [address] [place] [address] Chest PA and Lateral MR#: [id number] Acct: [id number] Name: NANI HIDALGO Rep #: [id number] : 2005 F 19 From: Michael Crowell MD PCP: Dr. Kishore Sam MD Status: REG ER Study: Chest PA and Lateral Date of Exam: 01/20/25 Exam# [id number] Ordering Dr: Reynold Nolasco DO EXAM: XR Chest, 2 Views CLINICAL INDICATION: CHEST PAIN TECHNIQUE: Frontal and lateral views of the chest. COMPARISON: No relevant prior studies available. FINDINGS: LUNGS AND PLEURAL SPACES: Unremarkable. No consolidation. No pneumothorax. HEART: Unremarkable. No cardiomegaly. MEDIASTINUM: Unremarkable. Normal mediastinal contour. BONES/JOINTS: Unremarkable. No acute fracture. RAD/Chest PA and Lateral IMPRESSION: No acute cardiopulmonary process. Reading Location: [id number] CC: Dr. Kishore Sam MD; Dr. Reynold Nolasco DO Collar Fuser: Signed Normal [facility] Chloride assayOrdered By: Rufus Nolasco on 01-20-2025 Chloride [Moles/Vol] 106 mmol/L 98-108 [facility] Emergency Department Summary on 01-20-2025 Emergency Department Summary [facility] Medical Records Department [address] [place] [address] Emergency Department Summary 01/20/25 MR#: [id number] Acct: [id number] Name: NANI HIDALGO Rep #: [id number] : 2005 19 From: Reynold Nolasco DO PCP: Dr. Kishore Sam MD Status:DEP ER Location: ED HPI History of Present Illness Chief Complaint: Dizziness Informant: patient Onset/Context/Timing Onset: Today and Hours (3) Context: Gradual Onset Timing: Continuous Quality: Squeezing Location: Chest Worsened by: Nothing Relieved by: Nothing Narrative Narrative: Patient presents with shaky feeling that began today while she was at work. Patient states it came on gradually. Patient states that she felt some squeezing in her chest. Patient states nothing makes it worse and nothing makes it better. Patient admits to some shortness of breath. Patient denies any nausea or vomiting. Patient denies any diaphoresis. Patient admits to some blurred vision. Patient also admits to mild headache. Patient denies any fevers or chills. PFSH PFSH Medical History no medical history no medical history Home Medications ???Medication ???Instructions ???Recorded ???Last Taken ???Type Albuterol Inhaler 2 puff inhalation Q6H PRN PRN Sob 12/16/17 Unknown History /Or Wheezing Allergy/AdvReac Type Severity Reaction Status Date / Time No Known Allergies Allergy Verified 01/20/25 15:40 Surgical History no surgical history no surgical history Social History (Updated 01/20/25 @ 16:[address] Reynold Nolasco DO) Smoking Status: Current every day smoker tobacco type: e-cigarettes Electronic Cigarette Use: with nicotine ROS ROS ED Constitutional Constitutional ED: Denies chills or fever(s) Eyes Eyes: Reports blurry vision; Denies change in vision ENT ENT ED: Denies rhinorrhea or sore throat Cardiovascular Cardiovascular: Reports chest pain; Denies palpitations Respiratory/Chest Respiratory/Chest: Reports dyspnea; Denies cough Gastrointestinal Gastrointestinal: Denies nausea or vomiting Genitourinary Genitourinary ED: Denies dysuria or hematuria Musculoskeletal Musculoskeletal: Reports neck pain; Denies back pain Integumentary Denies abscess or rash Neurologic Neurologic: Reports headache(s); Denies weakness Allergic/Immunologic Allergic/Immunologic ED: Denies mouth swelling or urticaria EXAM Physical Exam Const Vital Signs: 01/20/25 15:36 01/20/25 16:36 01/20/25 17:36 Temperature 97.8 F Temperature Source Temporal Pulse Rate 112 H 92 Respiratory Rate 18 19 H Blood Pressure 123/92 H 126/81 H Blood Pressure Mean 102 96 Pulse Ox 100 Oxygen Delivery Method Room Air Room Air Positive well nourished and well developed General Appearance ED: well developed and NAD HEENT Reports moist mucous membranes Neck supple and no JVD Resp normal respiratory effort and clear to auscultation bilaterally Cardio regular rate and regular rhythm GI non-tender and non-distended Palpation: soft Extremity normal to inspection General Extremety ED: Negative for edema or tenderness General Extremity: Negative for edema Neuro oriented x3, CN's II-XII intact bilaterally and no sensory deficits noted Sensorium / Orientation: alert Motor Exam: strength 5/5 throughout Psych mental status grossly normal MDM MDM MDM Narrative Medical decision making narrative: Differential diagnosis includes pneumonia, bronchitis, cardiac dysrhythmia, cardiac ischemia, electrolyte abnormality, gastroesophageal reflux disease, musculoskeletal pain, and anxiety. EKG will be obtained to assess for cardiac dysrhythmia and cardiac ischemia. Chest x-ray will be obtained to assess for pneumonia and bronchitis. CBC will be obtained to assess for leukocytosis and anemia. Basic metabolic profile will be obtained to assess for electrolyte abnormality and renal function. Serum hCG will be obtained to assess for . Urinalysis will be obtained to assess for urinary tract infection and hematuria. History Record Review Additional record(s) reviewed:: Prior labs Lab Data Attestation: I reviewed the patient's lab results. Lab results narrative: CBC was reviewed and was essentially within normal limits. Basic metabolic profile was reviewed and was within normal limits. High-sensitivity troponin was reviewed and was less than 6. Serum hCG was repeated and was negative. Urinalysis was reviewed. There is no evidence of urinary tract infection or hematuria. Labs: Laboratory Results - last 24 hr 01/20/25 01/20/25 16:30 16:35 WBC 7.1 RBC 5.48 H Hgb 15.7 H Hct 48.0 H MCV 87.6 MCH 28.6 MCHC 32.7 RDW Std Deviation 41.9 RDW Coeff of Lakshmi 13.0 Plt Count 370 MPV 9.2 Immature Gran % (A (more content not included)... Normal [facility] Eosinophil percentageOrdered By: Reynold Nolasco on 01-20-2025 Eosinophils/100 WBC (Bld) 1.8 % 0-5 [facility] Erythrocyte distribution wid th ratioOrdered By: Reynold Nolasco on 01-20-2025 Erythrocyte distribution width (RBC) [Ratio] 13.0 % 11.6-14.6 [facility] Erythrocyte distribution wid th standard deviationOrdered By: Reynold Nolasco on 01-20-2025 Erythrocyte distribution width (RBC) [Ratio] 41.9 fl 35.1-43.9 [facility] Glomerular filtration rate ( GFR) estimation/1.73 sq m using serum, plasma, or whole bOrdered By: Reynold Nolasco on 01-20-2025 GFR/1.73 sq M.predicted among non-blacks MDRD (S/P/Bld) [Vol rate/Area] 106 mL/min/{1.73_m2} >60 [facility] Comment on above: mL/min/1.73m2 CKD-EP I Creatinine Equation (2020) Hematocrit Auto (Bld) [Volum e fraction]Ordered By: Reynold Nolasco on 01-20-2025 Hematocrit (Bld) [Volume fraction] 48.0 % High 37-47 [facility] Hemoglobin measurementOrdere d By: Reynold Nolasco on 01-20-2025 Hemoglobin (Bld) [Mass/Vol] 15.7 g/dL High 12.0-15.0 [facility] Immature granulocytes/100 WB C Auto (Bld)Ordered By: Reynold Nolasco on 01-20-2025 Immature granulocytes/100 WBC (Bld) 0.600 % 0.0-0.9 [facility] Comment on above: IG% - Immature Granu locytes (promyelocytes, myelocytes and metamyelocytes) > 1% indicates that a LEFT SHIFT is Present. Ketones Test strip Ql (U)Ord ered By: Reynold Nolasco on 01-20-2025 Ketones Ql (U) Negative Negative [facility] L501.4021on 01-20-2025 Trop T High Sen < 6 Normal <=14 [facility] Comment on above: Performed By: #### L 100.0100, L503.6550, L501.4021, L501.9520, L501.5200, L500.2500, L503.6150 #### [facility] [address] [place], [place], [id number] MCV (mean corpuscular volume ) determinationOrdered By: Reynold Nolasco on 01-20-2025 MCV (RBC) [Entitic vol] 87.6 fL 81-99 [facility] Mean corpuscular hemoglobin (MCH) determinationOrdered By: Reynold Nolasco on 01-20-2025 MCH (RBC) [Entitic mass] 28.6 pg 27.0-32.0 [facility] Mean corpuscular hemoglobin concentration (MCHC) determinationOrdered By: Reynold Nolasco on 01-20-2025 MCHC (RBC) [Mass/Vol] 32.7 g/dL 32-36 [facility] Mean platelet volume determi nationOrdered By: Reynold Nolasco on 01-20-2025 Platelet mean volume (Bld) [Entitic vol] 9.2 fL 6.2-12.0 [facility] Microscopic analysis of urin e for red blood cells (RBC)Ordered By: Reynold Nolasco on 01-20-2025 Microscopic analysis of urine for red blood cells (RBC) 0-5 SEEN /hpf 0-5 [facility] Monocyte percentageOrdered B y: Reynold Nolasco on 01-20-2025 Monocytes/100 WBC (Bld) 6.2 % 0-10 [facility] Mucus LM Ql (Urine sed)Order ed By: Reynold Nolasco on 01-20-2025 Mucus Ql (Urine sed) 0 SEEN /hpf [facility] Neutrophil percentageOrdered By: Reynold Nolasco on 01-20-2025 Neutrophils/100 WBC (Bld) 65.3 % 47-70 [facility] Nitrite Test strip Ql (U)Ord ered By: Reynold Nolasco on 01-20-2025 Nitrite Ql (U) Negative Negative [facility] Nucleated red blood cell per centageOrdered By: Reynold Nolasco on 01-20-2025 Nucleated RBC/100 WBC (Bld) [Ratio] 0 % 0-5 [facility] Platelet countOrdered By: Rufus Nolasco on 01-20-2025 Platelets (Bld) [#/Vol] 370 10*3/uL 150-450 [facility] Potassium measurement (mass/ volume)Ordered By: Reynold Nolasco on 01-20-2025 Potassium (Unsp spec) [Mass/Vol] 3.5 mmol/L 3.3-5.1 [facility] ,Serum,hCG Quali.on 01-20-2025 HCG, SERUM QUAL Negative Normal [facility] Comment on above: Performed By: #### L 700.6800 ####[facility] [address] [place], [address] Protein Test strip Ql (U)Ord ered By: Reynold Nolasco on 01-20-2025 Protein Ql (U) Negative Negative [facility] RBC Auto (Bld) [#/Vol]Ordere d By: Reynold Nolasco on 01-20-2025 RBC (Bld) [#/Vol] 5.48 10*6/uL High 4.2-5.4 [facility] Serum beta-hCG test, qualita tiveOrdered By: Reynold Nolasco on 01-20-2025 Beta HCG ( test) Ql Negative [facility] Serum creatinine measurement (mass/volume)Ordered By: Reynold Nolasco on 01-20-2025 Creatinine [Mass/Vol] 0.82 mg/dL 0.70-1.20 [facility] Serum glucose measurement (m ass/volume)Ordered By: Reynold Nolasco on 01-20-2025 Glucose [Mass/Vol] 96 mg/dL 70-99 [facility] Serum or plasma calcium eris urement (mass/volume)Ordered By: Reynold Nolasco on 01-20-2025 Calcium [Mass/Vol] 9.5 mg/dL 7.6-11.0 [facility] Serum or plasma urea nitroge n measurement (mass/volume)Ordered By: Reynold Nolasco on 01-20-2025 Urea nitrogen [Mass/Vol] 8 mg/dL 4-19 [facility] Sodium levelOrdered By: Reynold Nolasco on 01-20-2025 Sodium [Moles/Vol] 142 mmol/L 133-145 [facility] Squamous epithelial cells de tection in urine sediment by light microscopyOrdered By: Reynold Nolasco on 01-20-2025 Epithelial cells.squamous LM Ql (Urine sed) 0 SEEN /hpf 5-10 [facility] Troponin T.cardiac [Mass/vol ume] in Serum or Plasma by High sensitivity methodOrdered By: Reynold Nolasco on 01-20-2025 Troponin T.cardiac High sensitivity method [Mass/Vol] < 6 ng/L <14 [facility] Urinalysis, Completeon 01-20 RBC 0-5 SEEN Normal 0-5 [facility] Comment on above: Order Comment: CLEAN CATCH Performed By: #### L 400.0001 ####[facility] [address] [place], [address] BACTERIA 0 SEEN Normal None Seen [facility] Comment on above: Order Comment: CLEAN CATCH Performed By: #### L 400.0001 ####[facility] [address] [place], [address] EPI,SQUAMOUS 0 SEEN Normal 5-10 [facility] Comment on above: Order Comment: CLEAN CATCH Performed By: #### L 400.0001 ####[facility] [address] [place], [address] Mucus Ql (Urine sed) 0 SEEN Normal [facility] Comment on above: Order Comment: CLEAN CATCH Performed By: #### L 400.0001 ####[facility] [address] [place], [address] WBC 0 SEEN Normal 0-5 [facility] Comment on above: Order Comment: CLEAN CATCH Performed By: #### L 400.0001 ####[facility] [address] [place], [address] Urine clarityOrdered By: Bozena Nolasco on 01-20-2025 Clarity (U) Clear Clear [facility] Urine color determinationOrd ered By: Reynold Nolasco on 01-20-2025 Color (U) Yellow Yellow [facility] Urine glucose detectionOrder ed By: Reynold Nolasco on 01-20-2025 Glucose Ql (U) Normal mg/dl Normal [facility] Urine leukocyte esterase det ection by dipstickOrdered By: Reynold Nolasco on 01-20-2025 Leukocyte esterase Test strip Ql (U) Negative Negative [facility] Urine pHOrdered By: Reynold jay on 01-20-2025 pH (U) 6.0 [pH] 5.0 - 8.0 [facility] Urine sediment bacteria coun t by microscopy (number/high power field)Ordered By: Reynold Nolasco on 01-20-2025 Bacteria LM.HPF (Urine sed) [#/Area] 0 /[HPF] None Seen [facility] Urine specific gravity measu rementOrdered By: Reynold Nolasco on 01-20-2025 Specific gravity (U) [Rel density] 1.015 1.002-1.030 [facility] Urine urobilinogen measureme ntOrdered By: Reynold Nolasco on 01-20-2025 Urobilinogen Ql (U) Normal mg/dl Normal [facility] White blood cell (WBC) count Ordered By: Reynold Nolacso on 01-20-2025 WBC (Bld) [#/Vol] 7.1 10*3/uL 4.4-11.0 [facility] White blood cell countOrdere d By: Reynold Nolasco on 01-20-2025 White blood cell count 0 SEEN /hpf 0-5 [facility] CBC W Auto Differential pane l (Bld)on 07-04-2024 Basophils (Bld) [#/Vol] 0.08 10*3/uL Normal <0.11 [facility] Comment on above: Order Comment: Speci men Type: BLOOD SPECIMENOrdering Facility: [facility] Address: [address] [place] [address] Performed By: #### 5 7021-8 ####[facility] [id number] [place] [address] [place] Basophils/100 WBC (Bld) 1.0 % Normal [facility] Comment on above: Order Comment: Speci men Type: BLOOD SPECIMENOrdering Facility: [facility] Address: [address] [place] [address] Performed By: #### 5 7021-8 ####[facility]LESNCJORD[facility] [id number] [place] [address] [place] Differential cell count method Nom (Bld) Auto Normal [facility] Comment on above: Order Comment: Speci men Type: BLOOD SPECIMENOrdering Facility: [facility] Address: [address] [place] [address] Performed By: #### 5 7021-8 ####[facility] [id number] [place] [address] [place] Eosinophils (Bld) [#/Vol] 0.43 10*3/uL Normal <0.46 [facility] Comment on above: Order Comment: Speci men Type: BLOOD SPECIMENOrdering Facility: [facility] Address: [address] [place] [address] Performed By: #### 5 7021-8 ####[facility] NAPLESNCLIA [id number] [place] [address] [place] Eosinophils/100 WBC (Bld) 5.6 % Normal [facility] Comment on above: Order Comment: Speci men Type: BLOOD SPECIMENOrdering Facility: [facility] Address: [address] [place] [address] Performed By: #### 5 7021-8 ####[facility] NAPLESNCLIA [id number] [place] [address] [place] Erythrocyte distribution width (RBC) [Ratio] 20.4 % High 11.5-15.0 [facility] Comment on above: Order Comment: Speci men Type: BLOOD SPECIMENOrdering Facility: [facility] Address: [address] [place] [address] Performed By: #### 5 7021-8 ####[facility] MILLWNCLIA [id number] [place] [address] [place] Hematocrit (Bld) [Volume fraction] 41.0 % Normal 36.0-46.0 [facility] Comment on above: Order Comment: Speci men Type: BLOOD SPECIMENOrdering Facility: [facility] Address: [address] [place] [address] Performed By: #### 5 7021-8 ####[facility] N[facility]LESNCLIA [id number] [place] [address] [place] Hemoglobin (Bld) [Mass/Vol] 13.1 g/dL Normal 11.5-15.5 [facility] Comment on above: Order Comment: Speci men Type: BLOOD SPECIMENOrdering Facility: [facility] Address: [address] [place] [address] Performed By: #### 5 7021-8 ####[facility]ITALL[facility] [id number] [place] [address] [place] Immature granulocytes (Bld) [#/Vol] 10*3/uL Normal <0.10 [facility] Comment on above: Order Comment: Speci men Type: BLOOD SPECIMENOrdering Facility: [facility] Address: [address] [place] [address] Performed By: #### 5 7021-8 ####[facility] ERWNCLIA [id number] [place] [address] [place] Immature granulocytes/100 WBC (Bld) 0.1 % Normal [facility] Comment on above: Order Comment: Speci men Type: BLOOD SPECIMENOrdering Facility: [facility] Address: [address] [place] [address] Performed By: #### 5 7021-8 ####[facility] MILLBHC VALLE VISTA HOSPITALLIA [id number] [place] [address] [place] Lymphocytes (Bld) [#/Vol] 3.20 10*3/uL Normal 1.00-4.00 [facility] Comment on above: Order Comment: Speci men Type: BLOOD SPECIMENOrdering Facility: [facility] Address: [address] [place] [address] Performed By: #### 5 7021-8 ####[facility] [id number] [place] [address] [place] Lymphocytes/100 WBC (Bld) 41.7 % Normal [facility] Comment on above: Order Comment: Speci men Type: BLOOD SPECIMENOrdering Facility: [facility] Address: [address] [place] [address] Performed By: #### 5 7021-8 ####[facility] NAPLESNCMaryse [id number] [place] [address] [place] MCH (RBC) [Entitic mass] 26.4 pg Normal 26.0-34.0 [facility] Comment on above: Order Comment: Speci men Type: BLOOD SPECIMENOrdering Facility: [facility] Address: [address] [place] [address] Performed By: #### 5 7021-8 ####[facility]OS[facility]ITALLIA [id number] [place] [address] [place] MCHC (RBC) [Mass/Vol] 32.0 g/dL Normal 30.5-36.0 [facility] Comment on above: Order Comment: Speci men Type: BLOOD SPECIMENOrdering Facility: [facility] Address: [address] [place] [address] Performed By: #### 5 7021-8 ####[facility] N[facility]LESNCLIA [id number] [place] [address] [place] MCV (RBC) [Entitic vol] 82.5 fL Normal 80.0-100.0 [facility] Comment on above: Order Comment: Speci men Type: BLOOD SPECIMENOrdering Facility: [facility] Address: [address] [place] [address] Performed By: #### 5 7021-8 ####[facility] [id number] [place] [address] [place] Monocytes (Bld) [#/Vol] 0.52 10*3/uL Normal <0.87 [facility] Comment on above: Order Comment: Speci men Type: BLOOD SPECIMENOrdering Facility: [facility] Address: [address] [place] [address] Performed By: #### 5 7021-8 ####[facility] [id number] [place] [address] [place] Monocytes/100 WBC (Bld) 6.8 % Normal [facility] Comment on above: Order Comment: Speci men Type: BLOOD SPECIMENOrdering Facility: [facility] Address: [address] [place] [address] Performed By: #### 5 7021-8 ####[facility] [id number] [place] [address] [place] Neutrophils (Bld) [#/Vol] 3.43 10*3/uL Normal 1.45-7.50 [facility] Comment on above: Order Comment: Speci men Type: BLOOD SPECIMENOrdering Facility: [facility] Address: [address] [place] [address] Performed By: #### 5 7021-8 ####[facility] [id number] [place] [address] [place] Neutrophils/100 WBC (Bld) 44.8 % Normal [facility] Comment on above: Order Comment: Speci men Type: BLOOD SPECIMENOrdering Facility: [facility] Address: [address] [place], [place] [address] Performed By: #### 5 7021-8 ####[facility] NAPLESNCLIA [id number] [place] [address] [place] Nucleated RBC (Bld) [#/Vol] 10*3/uL Normal <0.01 [facility] Comment on above: Order Comment: Speci men Type: BLOOD SPECIMENOrdering Facility: [facility] Address: [address] [place] [address] Performed By: #### 5 7021-8 ####[facility] NAPLESNCA [id number] [place] [address] [place] Nucleated RBC/100 WBC (Bld) [Ratio] 0.0 /100 WBC Normal [facility] Comment on above: Order Comment: Speci men Type: BLOOD SPECIMENOrdering Facility: [facility] Address: [address] [place] [address] Performed By: #### 5 7021-8 ####[facility] NAPLESNCLIA [id number] [place] [address] [place] Platelet mean volume (Bld) [Entitic vol] 9.5 fL Normal 9.0-12.7 [facility] Comment on above: Order Comment: Speci men Type: BLOOD SPECIMENOrdering Facility: [facility] Address: [address] [place] [address] Performed By: #### 5 7021-8 ####[facility] NAPLESNCLIA [id number] [place] [address] [place] Platelets (Bld) [#/Vol] 319 10*3/uL Normal 150-400 [facility] Comment on above: Order Comment: Speci men Type: BLOOD SPECIMENOrdering Facility: [facility] Address: [address] [place] [address] Performed By: #### 5 7021-8 ####[facility] [id number] [place] [address] [place] RBC (Bld) [#/Vol] 4.97 10*6/uL Normal 3.90-5.20 [facility] Comment on above: Order Comment: Speci men Type: BLOOD SPECIMENOrdering Facility: [facility] Address: [address] [place] [address] Performed By: #### 5 7021-8 ####[facility] NAPLESNCA [id number] [place] [address] [place] WBC (Bld) [#/Vol] 7.67 10*3/uL Normal 3.70-11.00 [facility] Comment on above: Order Comment: Speci men Type: BLOOD SPECIMENOrdering Facility: [facility] Address: [address] [place] [address] Performed By: #### 5 7021-8 ####[facility] NAPLESNCLIA [id number] [place] [address] [place] Ferritin SerPl-ncon 2023 Ferritin [Mass/Vol] 228.0 ng/mL High 14.7-205.1 [facility] Comment on above: Order Comment: Speci men Type: BLOOD SPECIMENOrdering Facility: [facility] Address: [address] [place] [address] Performed By: #### 5 0190-8, 2276-4 ####[facility] LABCLIA [id number] [place] [address] [place] Iron and Iron binding capaci ty panelon 07-04-2024 Iron [Mass/Vol] 96 ug/dL Normal 41-186 [facility] Comment on above: Order Comment: Speci men Type: BLOOD SPECIMENOrdering Facility: [facility] Address: [address] [place] [address] Performed By: #### 5 0190-8, 2276-4 ####[facility] LABCLIA [id number] [place] [address] [place] Iron binding capacity [Mass/Vol] 346 ug/dL Normal 232-386 [facility] Comment on above: Order Comment: Speci men Type: BLOOD SPECIMENOrdering Facility: [facility] Address: [address] [place] [address] Performed By: #### 5 0190-8, 2276-4 ####[facility] [id number] [address] [place] OF [facility] Iron/TIBC [Molar ratio] 27.7 % Normal 15.0-57.0 [facility] Comment on above: Order Comment: Speci men Type: BLOOD SPECIMENOrdering Facility: [facility] Address: [address] [place] [address] Performed By: #### 5 0190-8, 2276-4 ####[facility] [id number] [address] [place] CNCOon 05-31-2024 CNCO Letter Text Normal [facility] CNOVSPon 05-26-2024 CNOVSP Visit (SP) Office (HEMAWS) NANI HIDALGO ([id number]) 3 F Date Time Provider Department 05/26/24 3:00 PM TREATMENT RM 15 [facility] During your visit today, we recorded the following information about you: Temperature Pulse Blood pressure 97.7 degrees 76/minute 116/74 Referring Provider: KELLY YUEN [[id number]] Allergies As of Date: 05/26/2024 Noted Allergy Reaction BEE VENOM PROTEIN (HONEY BEE) 04/01/2022 7 - Swelling Date Reviewed: 05/24/2024 Reviewed by: Miriam Snyder RN - Fully Assessed Reason for Visit: Non-Chemotherapy Treatment [795] Primary Visit Diagnosis:Iron deficiency anemia due to chronic blood loss [D50.0] Order(s):[] iron sucrose 200 mg injection (VENOFER)Disp: Rfl: NaCl 0.9% iv infusionDisp: Rfl: diphenhydrAMINE 50 mg injection (BENADRYL)Disp: Rfl: hydrocortisone sodium succinate (PF) 100 mg injection (Solu-CORTEF)Disp: Rfl: EPINEPHrine HCl (PF) 1 mg/mL (1 mL) 0.3 mg injectionDisp: Rfl: BCN NURSING COMMUNICATION [[id number]] Order #: [id number]: 1 STANDING Prescriptions as of 05/26/2024 - TRI FEMYNOR 0.18/0.215/0.25 mg-35 mcg (28) Take 1 tablet by mouth once daily. Facility-Administered Medications as of 05/26/2024 - NaCl 0.9% iv infusion - diphenhydrAMINE 50 mg injection (BENADRYL) - hydrocortisone sodium succinate (PF) 100 mg injection (Solu-CORTEF) - EPINEPHrine HCl (PF) 1 mg/mL (1 mL) 0.3 mg injection Problem List As Of Date 05/26/2024 Noted Resolved Iron deficiency anemia due to chronic blood los*05/05/2024 Encounter Status:Closed by LOLITA ROBERTS on 05/26/24 [facility] CNOVSPon 05-24-2024 CNOVSP Visit (SP) Office (HEMAWS) NANI HIDALGO ([id number]) 3 F Date Time Provider Department 05/24/24 3:30 PM TREATMENT RM 14 [facility] During your visit today, we recorded the following information about you: Temperature Pulse Respiration Blood pressure 98.9 degrees 88/minute 18/minute 128/87 Referring Provider: KELLY YUEN [[id number]] Allergies As of Date: 05/24/2024 Noted Allergy Reaction BEE VENOM PROTEIN (HONEY BEE) 04/01/2022 7 - Swelling Date Reviewed: 05/24/2024 Reviewed by: Miriam Snyder RN - Fully Assessed Reason for Visit: Non-Chemotherapy Treatment [795] Primary Visit Diagnosis:Iron deficiency anemia due to chronic blood loss [D50.0] Order(s):TREATMENT PARAMETER-NOT NEEDED [[id number]] Order #: [id number]: 1 BCN NURSING COMMUNICATION [[id number]] Order #: [id number]: 1 STANDING BCN NURSING COMMUNICATION [[id number]] Order #: [id number]: 1 STANDING [] iron sucrose 200 mg injection (VENOFER)Disp: Rfl: NaCl 0.9% iv infusionDisp: Rfl: diphenhydrAMINE 50 mg injection (BENADRYL)Disp: Rfl: hydrocortisone sodium succinate (PF) 100 mg injection (Solu-CORTEF)Disp: Rfl: EPINEPHrine HCl (PF) 1 mg/mL (1 mL) 0.3 mg injectionDisp: Rfl: BCN NURSING COMMUNICATION [[id number]] Order #: [id number]: 1 STANDING Prescriptions as of 05/24/2024 - TRI FEMYNOR 0.18/0.215/0.25 mg-35 mcg (28) Take 1 tablet by mouth once daily. Facility-Administered Medications as of 05/24/2024 - NaCl 0.9% iv infusion - diphenhydrAMINE 50 mg injection (BENADRYL) - hydrocortisone sodium succinate (PF) 100 mg injection (Solu-CORTEF) - EPINEPHrine HCl (PF) 1 mg/mL (1 mL) 0.3 mg injection Problem List As Of Date 05/24/2024 Noted Resolved Iron deficiency anemia due to chronic blood los*05/05/2024 Encounter Status:Closed by MIRIAM SNYDER on 05/24/24 [facility] CNOVSPon 05-20-2024 CNOVSP Visit (SP) Office (HEMAWS) ROCKYNANI ([id number]) 3 F Date Time Provider Department 05/20/24 3:30 PM TREATMENT RM 14 [facility] During your visit today, we recorded the following information about you: Temperature Pulse Respiration Blood pressure 98.6 degrees 104/minute 14/minute 95/66 Referring Provider: KELLY YUEN [[id number]] Allergies As of Date: 05/20/2024 Noted Allergy Reaction BEE VENOM PROTEIN (HONEY BEE) 04/01/2022 7 - Swelling Date Reviewed: 05/20/2024 Reviewed by: Alicia Felipe RN - Fully Assessed Reason for Visit: Non-Chemotherapy Treatment [795] Primary Visit Diagnosis:Iron deficiency anemia due to chronic blood loss [D50.0] Order(s):TREATMENT PARAMETER-NOT NEEDED [[id number]] Order #: [id number]: 1 BCN NURSING COMMUNICATION [[id number]] Order #: [id number]: 1 STANDING BCN NURSING COMMUNICATION [[id number]] Order #: [id number]: 1 STANDING [] iron sucrose 200 mg injection (VENOFER)Disp: Rfl: NaCl 0.9% iv infusionDisp: Rfl: diphenhydrAMINE 50 mg injection (BENADRYL)Disp: Rfl: hydrocortisone sodium succinate (PF) 100 mg injection (Solu-CORTEF)Disp: Rfl: EPINEPHrine HCl (PF) 1 mg/mL (1 mL) 0.3 mg injectionDisp: Rfl: BCN NURSING COMMUNICATION [[id number]] Order #: [id number]: 1 STANDING Prescriptions as of 05/20/2024 - TRI FEMYNOR 0.18/0.215/0.25 mg-35 mcg (28) Take 1 tablet by mouth once daily. Facility-Administered Medications as of 05/20/2024 - NaCl 0.9% iv infusion - diphenhydrAMINE 50 mg injection (BENADRYL) - hydrocortisone sodium succinate (PF) 100 mg injection (Solu-CORTEF) - EPINEPHrine HCl (PF) 1 mg/mL (1 mL) 0.3 mg injection Problem List As Of Date 05/20/2024 Noted Resolved Iron deficiency anemia due to chronic blood los*05/05/2024 Encounter Status:Closed by ALICIA FELIPE on 05/20/24 [facility] CNOVSPon 05-18-2024 CNOVSP Visit (SP) Office (HEMAWS) NANI HIDALGO ([id number]) 3 F Date Time Provider Department 05/18/24 8:30 AM TREATMENT RM 15 [facility] During your visit today, we recorded the following information about you: Temperature Pulse Respiration Blood pressure 98.9 degrees 96/minute 14/minute 100/66 Referring Provider: KELLY YUEN [[id number]] Allergies As of Date: 05/18/2024 Noted Allergy Reaction BEE VENOM PROTEIN (HONEY BEE) 04/01/2022 7 - Swelling Date Reviewed: 05/18/2024 Reviewed by: Sabra Butt RN - Fully Assessed Reason for Visit: Non-Chemotherapy Treatment [795] Primary Visit Diagnosis:Iron deficiency anemia due to chronic blood loss [D50.0] Order(s):TREATMENT PARAMETER-NOT NEEDED [1780420] Order #: [id number]: 1 BCN NURSING COMMUNICATION [[id number]] Order #: [id number]: 1 STANDING BCN NURSING COMMUNICATION [[id number]] Order #: [id number]: 1 STANDING [] iron sucrose 200 mg injection (VENOFER)Disp: Rfl: NaCl 0.9% iv infusionDisp: Rfl: diphenhydrAMINE 50 mg injection (BENADRYL)Disp: Rfl: hydrocortisone sodium succinate (PF) 100 mg injection (Solu-CORTEF)Disp: Rfl: EPINEPHrine HCl (PF) 1 mg/mL (1 mL) 0.3 mg injectionDisp: Rfl: BCN NURSING COMMUNICATION [[id number]] Order #: [id number]: 1 STANDING Prescriptions as of 05/18/2024 - TRI FEMYNOR 0.18/0.215/0.25 mg-35 mcg (28) Take 1 tablet by mouth once daily. Facility-Administered Medications as of 05/18/2024 - NaCl 0.9% iv infusion - diphenhydrAMINE 50 mg injection (BENADRYL) - hydrocortisone sodium succinate (PF) 100 mg injection (Solu-CORTEF) - EPINEPHrine HCl (PF) 1 mg/mL (1 mL) 0.3 mg injection Problem List As Of Date 05/18/2024 Noted Resolved Iron deficiency anemia due to chronic blood los*05/05/2024 Encounter Status:Closed by SABRA BUTT on 05/18/24 [facility] CNOVSPon 05-16-2024 CNOVSP Visit (SP) Office (HEMAWS) NANI HIDALGO ([id number]) 3 F Date Time Provider Department 05/16/24 8:00 AM TREATMENT RM 14 AND[facility] During your visit today, we recorded the following information about you: Temperature Pulse Blood pressure 97.9 degrees 64/minute 106/69 Referring Provider: KELLY YUEN [[id number]] Allergies As of Date: 05/16/2024 Noted Allergy Reaction BEE VENOM PROTEIN (HONEY BEE) 04/01/2022 7 - Swelling Date Reviewed: 05/16/2024 Reviewed by: Olive Carlin, JOSAFAT - Fully Assessed Reason for Visit: Non-Chemotherapy Treatment [795] Primary Visit Diagnosis:Iron deficiency anemia due to chronic blood loss [D50.0] Order(s):TREATMENT PARAMETER-NOT NEEDED [9990810] Order #: [id number]: 1 BCN NURSING COMMUNICATION [[id number]] Order #: [id number]: 1 STANDING BCN NURSING COMMUNICATION [[id number]] Order #: [id number]: 1 STANDING [] iron sucrose 200 mg injection (VENOFER)Disp: Rfl: NaCl 0.9% iv infusionDisp: Rfl: diphenhydrAMINE 50 mg injection (BENADRYL)Disp: Rfl: hydrocortisone sodium succinate (PF) 100 mg injection (Solu-CORTEF)Disp: Rfl: EPINEPHrine HCl (PF) 1 mg/mL (1 mL) 0.3 mg injectionDisp: Rfl: N NURSING COMMUNICATION [[id number]] Order #: [id number]: 1 STANDING Prescriptions as of 05/16/2024 - TRI FEMYNOR 0.18/0.215/0.25 mg-35 mcg (28) Take 1 tablet by mouth once daily. 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 The patient does not have a cancer diagnosis or a chemo/radiation regimen. No further Financial Navigator intervention is needed at this time. Allergies As of Date: 05/16/2024 Noted Allergy Reaction BEE VENOM PROTEIN (HONEY BEE) 04/01/2022 7 - Swelling Date Reviewed: 05/16/2024 Reviewed by: Olive Carlin, RN - Fully Assessed Prescriptions as of 05/16/2024 - TRI FEMYNOR 0.18/0.215/0.25 mg-35 mcg (28) Take 1 tablet by mouth once daily. Problem List As Of Date 05/16/2024 Noted Resolved Iron deficiency anemia due to chronic blood los*05/05/2024 Encounter Status:Closed by DARYL GARCIA on 05/16/24 Normal [facility] CNPN Telephone (HEMJAIDA) NANI HIDALGO ([id number]) 3 F Date Time Provider Department 05/16/24 OLIVE MARQUEZ During your visit today, we recorded the following information about you: Olive Marquez LISW 05/16/2024 11:29 AM Signed SOCIAL WORK FOLLOW UP NOTE: [facility] Pt noted on [place] 1st time treatment report. Pt has a non-oncology regimen. No social work follow up indicated. TAYLA Gonzales-S Allergies As of Date: 05/16/2024 Noted Allergy Reaction BEE VENOM PROTEIN (HONEY BEE) 04/01/2022 7 - Swelling Date Reviewed: 05/16/2024 Reviewed by: Olive Carlin RN - Fully Assessed Reason for Visit: SOCIAL WORK SERVICES (1ST TIME TREATMENT) [Other] Prescriptions as of 05/16/2024 - TRI FEMYNOR 0.18/0.215/0.25 mg-35 mcg (28) Take 1 tablet by mouth once daily. Problem List As Of Date 05/16/2024 Noted Resolved Iron deficiency anemia due to chronic blood los*05/05/2024 Encounter Status:Closed by OLIVE MARQUEZ on 05/16/24 [facility] CBC W Auto Differential pane l (Bld)on 05-05-2024 Basophils (Bld) [#/Vol] 0.05 10*3/uL NINF [facility] Basophils/100 WBC (Bld) 0.6 % [facility] Differential cell count method Nom (Bld) Auto [facility] Eosinophils (Bld) [#/Vol] 0.18 10*3/uL [facility] Eosinophils/100 WBC (Bld) 2.0 % [facility] Erythrocyte distribution width (RBC) [Ratio] 15.6 % High 11.5 - 15.0 % [facility] Hematocrit (Bld) [Volume fraction] 38.3 % 36.0 - 46.0 % [facility] Hemoglobin (Bld) [Mass/Vol] 12.0 g/dL 11.5 - 15.5 g/dL [facility] Immature granulocytes (Bld) [#/Vol] [facility] Immature granulocytes/100 WBC (Bld) 0.2 % [facility] Interpretation and review of laboratory results Abnormal [facility] Lymphocytes (Bld) [#/Vol] 1.91 10*3/uL [facility] Lymphocytes/100 WBC (Bld) 21.5 % [facility] MCH (RBC) [Entitic mass] 23.4 pg Low 26. 0 - 34.0 pg [facility] MCHC (RBC) [Mass/Vol] 31.3 g/dL 30.5 - 36.0 g/dL [facility] MCV (RBC) [Entitic vol] 74.8 fL Low 80.0 - 100.0 fL [facility] Monocytes (Bld) [#/Vol] 0.49 10*3/uL [facility] Monocytes/100 WBC (Bld) 5.5 % [facility] Neutrophils (Bld) [#/Vol] 6.23 10*3/uL [facility] Neutrophils/100 WBC (Bld) 70.2 % [facility] Nucleated RBC (Bld) [#/Vol[facility] Nucleated RBC/100 WBC (Bld) [Ratio] 0.0 % /100 WBC [facility] Platelet mean volume (Bld) [Entitic vol] 9.9 fL 9.0 - 12.7 fL [facility] Platelets (Bld) [#/Vol] 324 10*3/uL [facility] RBC (Bld) [#/Vol] 5.12 10*6/uL 3.90 - 5.2 0 m/uL [facility] WBC (Bld) [#/Vol] 8.88 10*3/uL [facility] Basophils (Bld) [#/Vol] 0.05 10*3/uL Normal <0.11 [facility] Comment on above: Order Comment: Speci men Type: BLOOD SPECIMENOrdering Facility: [facility] Address: [address] [place] [address] Performed By: #### 5 7021-8 ####[facility] ERWMOLIA [id number] [place] [address] [place] Basophils/100 WBC (Bld) 0.6 % Normal [facility] Comment on above: Order Comment: Speci men Type: BLOOD SPECIMENOrdering Facility: [facility] Address: [address] [place] [address] Performed By: #### 5 7021-8 ####[facility] [id number] [place] [address] [place] Differential cell count method Nom (Bld) Auto Normal [facility] Comment on above: Order Comment: Speci men Type: BLOOD SPECIMENOrdering Facility: [facility] Address: [address] [place] [address] Performed By: #### 5 7021-8 ####[facility] [id number] [place] [address] [place] Eosinophils (Bld) [#/Vol] 0.18 10*3/uL Normal <0.46 [facility] Comment on above: Order Comment: Speci men Type: BLOOD SPECIMENOrdering Facility: [facility] Address: [address] [place] [address] Performed By: #### 5 7021-8 ####[facility] NAPLESNCLIA [id number] [place] [address] [place] Eosinophils/100 WBC (Bld) 2.0 % Normal [facility] Comment on above: Order Comment: Speci men Type: BLOOD SPECIMENOrdering Facility: [facility] Address: [address] [place] [address] Performed By: #### 5 7021-8 ####[facility] BILLVICKI [id number] [place] [address] [place] Erythrocyte distribution width (RBC) [Ratio] 15.6 % High 11.5-15.0 [facility] Comment on above: Order Comment: Speci men Type: BLOOD SPECIMENOrdering Facility: [facility] Address: [address] [place] [address] Performed By: #### 5 7021-8 ####[facility] BILLLA MONTEMILADYMaryse [id number] [place] [address] [place] Hematocrit (Bld) [Volume fraction] 38.3 % Normal 36.0-46.0 [facility] Comment on above: Order Comment: Speci men Type: BLOOD SPECIMENOrdering Facility: [facility] Address: [address] [place] [address] Performed By: #### 5 7021-8 ####[facility] NAPLESMICHELLEA [id number] [place] [address] [place] Hemoglobin (Bld) [Mass/Vol] 12.0 g/dL Normal 11.5-15.5 [facility] Comment on above: Order Comment: Speci men Type: BLOOD SPECIMENOrdering Facility: [facility] Address: [address] [place] [address] Performed By: #### 5 7021-8 ####[facility] NAPLESMILADYA [id number] [place] [address] [place] Immature granulocytes (Bld) [#/Vol] 10*3/uL Normal <0.10 [facility] Comment on above: Order Comment: Speci men Type: BLOOD SPECIMENOrdering Facility: [facility] Address: [address] [place] [address] Performed By: #### 5 7021-8 ####[facility] NAPLESNCLIA [id number] [place] [address] [place] Immature granulocytes/100 WBC (Bld) 0.2 % Normal [facility] Comment on above: Order Comment: Speci men Type: BLOOD SPECIMENOrdering Facility: [facility] Address: [address] [place] [address] Performed By: #### 5 7021-8 ####[facility] HOSPITALLI [id number] [place] [address] [place] Lymphocytes (Bld) [#/Vol] 1.91 10*3/uL Normal 1.00-4.00 [facility] Comment on above: Order Comment: Speci men Type: BLOOD SPECIMENOrdering Facility: [facility] Address: [address] [place] [address] Performed By: #### 5 7021-8 ####[facility] [id number] [place] [address] [place] Lymphocytes/100 WBC (Bld) 21.5 % Normal [facility] Comment on above: Order Comment: Speci men Type: BLOOD SPECIMENOrdering Facility: [facility] Address: [address] [place] [address] Performed By: #### 5 7021-8 ####[facility] NAPLESNCLI [id number] [place] [address] [place] MCH (RBC) [Entitic mass] 23.4 pg Low 26.0-34.0 [facility] Comment on above: Order Comment: Speci men Type: BLOOD SPECIMENOrdering Facility: [facility] Address: [address] [place] [address] Performed By: #### 5 7021-8 ####[facility] NAPLESNCLIA [id number] [place] [address] [place] MCHC (RBC) [Mass/Vol] 31.3 g/dL Normal 30.5-36.0 [facility] Comment on above: Order Comment: Speci men Type: BLOOD SPECIMENOrdering Facility: [facility] Address: [address] [place] [address] Performed By: #### 5 7021-8 ####[facility] [id number] [place] [address] [place] MCV (RBC) [Entitic vol] 74.8 fL Low 80.0-100.0 [facility] Comment on above: Order Comment: Speci men Type: BLOOD SPECIMENOrdering Facility: [facility] Address: [address] [place] [address] Performed By: #### 5 7021-8 ####[facility] [id number] [place] [address] [place] Monocytes (Bld) [#/Vol] 0.49 10*3/uL Normal <0.87 [facility] Comment on above: Order Comment: Speci men Type: BLOOD SPECIMENOrdering Facility: [facility] Address: [address] [place] [address] Performed By: #### 5 7021-8 ####[facility] [id number] [place] [address] [place] Monocytes/100 WBC (Bld) 5.5 % Normal [facility] Comment on above: Order Comment: Speci men Type: BLOOD SPECIMENOrdering Facility: [facility] Address: [address] [place] [address] Performed By: #### 5 7021-8 ####[facility] [id number] [place] [address] [place] Neutrophils (Bld) [#/Vol] 6.23 10*3/uL Normal 1.45-7.50 [facility] Comment on above: Order Comment: Speci men Type: BLOOD SPECIMENOrdering Facility: [facility] Address: [address] [place] [address] Performed By: #### 5 7021-8 ####[facility] BILLVICKI [id number] [place] [address] [place] Neutrophils/100 WBC (Bld) 70.2 % Normal [facility] Comment on above: Order Comment: Speci men Type: BLOOD SPECIMENOrdering Facility: [facility] Address: [address] [place] [address] Performed By: #### 5 7021-8 ####[facility] NAPLESMICHELLEJORDAN [facility] [id number] [place] [address] [place] Nucleated RBC (Bld) [#/Vol] 10*3/uL Normal <0.01 [facility] Comment on above: Order Comment: Speci men Type: BLOOD SPECIMENOrdering Facility: [facility] Address: [address] [place] [address] Performed By: #### 5 7021-8 ####[facility] NAPLESNCA [id number] [place] [address] [place] Nucleated RBC/100 WBC (Bld) [Ratio] 0.0 /100 WBC Normal [facility] Comment on above: Order Comment: Speci men Type: BLOOD SPECIMENOrdering Facility: [facility] Address: [address] [place] [address] Performed By: #### 5 7021-8 ####[facility] [id number] [place] [address] [place] Platelet mean volume (Bld) [Entitic vol] 9.9 fL Normal 9.0-12.7 [facility] Comment on above: Order Comment: Speci men Type: BLOOD SPECIMENOrdering Facility: [facility] Address: [address] [place] [address] Performed By: #### 5 7021-8 ####[facility] ERWNCLIA [id number] [place] [address] [place] Platelets (Bld) [#/Vol] 324 10*3/uL Normal 150-400 [facility] Comment on above: Order Comment: Speci men Type: BLOOD SPECIMENOrdering Facility: [facility] Address: [address] [place] [address] Performed By: #### 5 7021-8 ####[facility] NAPLESNCLIA [id number] [place] [address] [place] RBC (Bld) [#/Vol] 5.12 10*6/uL Normal 3.90-5.20 [facility] Comment on above: Order Comment: Speci men Type: BLOOD SPECIMENOrdering Facility: [facility] Address: [address] [place] [address] Performed By: #### 5 7021-8 ####[facility] NAPLESNCLIA [id number] [place] [address] [place] WBC (Bld) [#/Vol] 8.88 10*3/uL Normal 3.70-11.00 [facility] Comment on above: Order Comment: Speci men Type: BLOOD SPECIMENOrdering Facility: [facility] Address: [address] [place] [address] Performed By: #### 5 7021-8 ####[facility] NAPLESNCLIA [id number] [place] [address] [place] CNOVSPon 05-05-2024 CNOVSP Visit (SP) Office (HEMAWS) NANI HIDALGO ([id number]) 3 F Date Time Provider Department 05/05/24 10:30 AM KELLY YUEN During your visit today, we recorded the following information about you: Temperature Pulse Respiration Blood pressure 97.5 degrees 105/minute 12/minute 98/67 Weight Height 48.1 kg 1.56 m Kelly Yuen 05/09/2024 1:07 PM Signed Progress Note Nani Hidalgo 2005 Encounter date: 05/05/2024 HPI: Nani Hidalgo is a 19 year old female with no significant PMHx presenting as a referral from her PCP for LIZ. Ms. Hidalgo presents today with her mother for visit. She notes that she is trying to join the [employer] and needs a letter stating that she is cleared from anemia. Recent lab results from PCP do indicate LIZ. Reviewed CBC and iron studies with patient and mother. Likely caused by chronic blood loss from previously heavy menstrual cycles. Pt is on OC to control heavy bleeding. This is now under control. She has been on PO iron in the past, was unable to tolerate due to nausea. PCP placed orders for IV iron, per pt this was not discussed with her and PCP does not have access to infusion center thus she was referred here. Fatigued. She notes that appetite is good. Does not follow any particular dietary restrictions. Notes she stopped eating for a time last year following a break up. This has resolved. Denies aches or pains. No SOB, CP, or palpitations. No REHMAN, dizziness, or changes in vision. Denies N/V/C/D. No rash or skin changes. Denies hematuria, hematochezia, hematemesis. No abnormal bruising. No family or personal hx of blood or bleeding disorders. No hx of cancers. Current Outpatient Medications Medication Sig Dispense Refill TRI FEMYNOR 0.18/0.215/0.25 mg-35 mcg (28) Take 1 tablet by mouth once daily. No current facility-administered medications for this visit. ALLERGIES Allergen Reactions Bee Venom Protein (* Swelling No family history on file. Social History Tobacco Use Smoking status: Never Smokeless tobacco: Never Tobacco comments: 2 smokers in the home Substance Use Topics Alcohol use: Never Drug use: Never Review of Systems: Negative except as noted in HPI reviewed 05/05/2024 Physical Exam: BP 98/67 Pulse 105 Temp 97.5 Resp 12 Ht 5' 1.417 (1.56m) Wt 106 lb (48.1kg) SpO2 100% LMP 11/27/2022 BMI 19.76 kg/(m2). General: Age-appropriate well developed. Appears well. HEENT: Normocephalic, no sclera icterus, external ears normal, oral cavity clear. Neck: Supple, no JVD. Chest: Clear bilaterally, no wheezes, not labored. Heart: Normal S1 and S2, no abnormal sounds Abdomen: Soft, nontender, nondistended, bowel sounds present, no organomegaly or mass, no rigidity. Extremities: No cyanosis, clubbing, gross deformities Neurological: no focal deficits. Skin: Warm and dry with no rashes or ulcerations. Nodes: No palpable adenopathy in the cervical, supraclavicular, infraclavicular, or axillary regions. Hematologic: no bruising or petechiae. Psychiatric: Alert and oriented x3. Lab Results Component Value Date WBC 5.95 08/13/2016 HB 12.7 08/13/2016 MCV 83.8 08/13/2016 PLT 285 08/13/2016 No results found for: NA, K, CO2, BUN, CREAT, TBILI, TPROT, ALB, ALKPHOS, ALT, AST Assessment and Plan: Ms. Hidalgo is a 19 year old presenting for LIZ Iron Deficiency Anemia - likely chronic blood loss on OC to manage heavy menses - reviewed PCP labs from 04/2024 reflecting LIZ, per note orders placed for IV iron was not completed - would also recommend IV iron - will repeat labs today as over 4 weeks ago - pt unable to tolerate PO due to GI side effects. - Offered 300mg vs 200mg dosing and schedule pt would prefer 200mg - Plan for IV iron sucrose 200x5 - recheck iron studies in about 8 weeks Kelly Yuen APRN.MANAGER CARDIAC CATH I spent a total of 45 minutes on the date of the service which included preparing to see the patient, [id number] patient care, completing clinical documentation, and ordering medications, tests, or procedures. Portions of this note including HPI, ROS, impression/plan may have been copied forward as to provide important historical information essential in contributing to medical decision making. Documentation has been reviewed and edited as necessary to support clinical decision making for today's visit and to reflect my own independent evaluation of this patient. Allergies As of Date: 05/05/2024 Noted Allergy Reaction BEE VENOM PROTEIN (HONEY BEE) 04/01/2022 7 - Swelling Date Reviewed: 05/05/2024 Reviewed by: Susannah Menjivar LPN - Fully Assessed Reason for Visit: New Patient Evaluation [154] Cmt: Iron deficiency anemia Primary Visit Diagnosis:Iron deficiency anemia due to chronic blood loss [D50.0] Order(s):IRON AND TIBC [SQIRON] Order #: [id number] FUTURE FE (more content not included)... Normal [facility] FERRITINon 05-05-2024 Ferritin [Mass/Vol] 7.5 ng/mL Low 14.7 - 2 05.1 ng/mL [facility] Ferritin SerPl-mCncon 2023 Ferritin [Mass/Vol] 7.5 ng/mL Low 14.7-205.1 [facility] Comment on above: Order Comment: Specraymond dickerson Type: BLOOD SPECIMENOrdering Facility: [facility] Address: [address] [place] [address] Performed By: #### 5 0190-8, 6-4 ####[facility] [id number] [address] [place] Ferritin [Mass/Vol]on 2023 Interpretation and review of laboratory results Abnormal [facility] Iron and Iron binding capaci ty panelon 05-05-2024 Interpretation and review of laboratory results Abnormal [facility] Iron [Mass/Vol] 48 ug/dL 41 - 186 ug/dL [facility] Iron binding capacity [Mass/Vol] ug/dL High 232 - 386 ug/dL [facility] Iron/TIBC [Molar ratio] % Low 15.0 - 57.0 % [facility] Iron [Mass/Vol] 48 ug/dL Normal 41-186 [facility] Comment on above: Order Comment: Dio dickerson Type: BLOOD SPECIMENOrdering Facility: [facility] Address: [address] [place] [address] Performed By: #### 5 0190-8, 2275-11 ####[facility] [id number] [place] [id number] [place] Iron binding capacity [Mass/Vol] >548 High 232-386 [facility] Comment on above: Order Comment: Speci men Type: BLOOD SPECIMENOrdering Facility: [facility] Address: [address] [place] [address] Performed By: #### 5 0190-8, 2275-11 ####[facility] [id number] [place] [id number] [place] Iron/TIBC [Molar ratio] <8.8 Low 15.0-57.0 [facility] Comment on above: Order Comment: Speci men Type: BLOOD SPECIMENOrdering Facility: [facility] Address: [address] [place] [address] Performed By: #### 5 0190-8, 2275-11 ####[facility] [id number] [place] [id number] [place] CBC W/Diff, Automatedon 09-0 9-2023 Absolute Lymph 2.06 X10 3/uL Normal 0.83-4.51 [facility] Comment on above: Order Comment: Order Date: 04/11/24 Order Info: [id number] - CBCD Performed By: #### L 503.6030, L503.6550, L100.0100, L503.0105, L506.0250 #### [facility] [address] [place], [place], [address] Absolute Neut 4.2 X10 3/uL Normal 2.0-7.7 [facility] Comment on above: Order Comment: Order Date: 04/11/24 Order Info: [id number] - CBCD Performed By: #### L 503.6030, L503.6550, L100.0100, L503.0105, L506.0250 #### [facility] [address] [place], [address] Basophils/100 WBC (Bld) 1.0 % Normal 0-1 [facility] Comment on above: Order Comment: Order Date: 04/11/24 Order Info: [id number] - CBCD Performed By: #### L 503.6030, L503.6550, L100.0100, L503.0105, L506.0250 #### [facility] [address] [place], [address] Eosinophils/100 WBC (Bld) 2.4 % Normal 0-5 [facility] Comment on above: Order Comment: Order Date: 04/11/24 Order Info: [id number] - CBCD Performed By: #### L 503.6030, L503.6550, L100.0100, L503.0105, L506.0250 #### [facility] [address] [place], [address] Erythrocyte distribution width (RBC) [Ratio] 16.3 % High 11.6-14.6 [facility] Comment on above: Order Comment: Order Date: 04/11/24 Order Info: [id number] - CBCD Performed By: #### L 503.6030, L503.6550, L100.0100, L503.0105, L506.0250 #### [facility] [address] [place], [address] Hematocrit (Bld) [Volume fraction] 36.1 % Low 37-47 [facility] Comment on above: Order Comment: Order Date: 04/11/24 Order Info: [id number] - CBCD Performed By: #### L 503.6030, L503.6550, L100.0100, L503.0105, L506.0250 #### [facility] [address] [place], [address] Hemoglobin (Bld) [Mass/Vol] 10.8 g/dL Low 12.0-15.0 [facility] Comment on above: Order Comment: Order Date: 04/11/24 Order Info: [id number] - CBCD Performed By: #### L 503.6030, L503.6550, L100.0100, L503.0105, L506.0250 #### [facility] [address] [place], [address] IG% 0.300 Normal 0.0-0.9 [facility] Comment on above: Order Comment: Order Date: 04/11/24 Order Info: [id number] - CBCD Result Comment: IG% - Immature Granulocytes (promyelocytes, myelocytes and metamyelocytes) > 1% indicates that a LEFT SHIFT is Present. Performed By: #### L 503.6030, L503.6550, L100.0100, L503.0105, L506.0250 #### [facility] [address] [place], [address] Lymphocytes/100 WBC (Bld) 29.1 % Normal 19-41 [facility] Comment on above: Order Comment: Order Date: 04/11/24 Order Info: [id number] - CBCD Performed By: #### L 503.6030, L503.6550, L100.0100, L503.0105, L506.0250 #### [facility] [address] [place], [address] MCH (RBC) [Entitic mass] 23.0 pg Low 27.0-32.0 [facility] Comment on above: Order Comment: Order Date: 04/11/24 Order Info: [id number] - CBCD Performed By: #### L 503.6030, L503.6550, L100.0100, L503.0105, L506.0250 #### [facility] [address] [place], [address] MCHC (RBC) [Mass/Vol] 29.9 g/dL Low 32-36 [facility] Comment on above: Order Comment: Order Date: 04/11/24 Order Info: [id number] - CBCD Performed By: #### L 503.6030, L503.6550, L100.0100, L503.0105, L506.0250 #### [facility] [address] [place], [address] MCV (RBC) [Entitic vol] 77.0 fL Low 81-99 [facility] Comment on above: Order Comment: Order Date: 04/11/24 Order Info: [id number] - CBCD Performed By: #### L 503.6030, L503.6550, L100.0100, L503.0105, L506.0250 #### [facility] [address] [place], [address] Monocytes/100 WBC (Bld) 7.3 % Normal 0-10 [facility] Comment on above: Order Comment: Order Date: 04/11/24 Order Info: 018- - CBCD Performed By: #### L 503.6030, L503.6550, L100.0100, L503.0105, L506.0250 #### [facility] [address] [place], [address] Neutrophils/100 WBC (Bld) 59.9 % Normal 47-70 [facility] Comment on above: Order Comment: Order Date: 04/11/24 Order Info: 018- - CBCD Performed By: #### L 503.6030, L503.6550, L100.0100, L503.0105, L506.0250 #### [facility] [address] [place], [address] Nucleated RBC (Bld) [#/Vol] 0 10*3/uL Normal 0-5 [facility] Comment on above: Order Comment: Order Date: 04/11/24 Order Info: [id number] - CBCD Performed By: #### L 503.6030, L503.6550, L100.0100, L503.0105, L506.0250 #### [facility] [address] [place], [address] Platelet mean volume (Bld) [Entitic vol] 10.5 fL Normal 6.2-12.0 [facility] Comment on above: Order Comment: Order Date: 04/11/24 Order Info: [id number] - CBCD Performed By: #### L 503.6030, L503.6550, L100.0100, L503.0105, L506.0250 #### [facility] [address] [place], [address] Platelets (Bld) [#/Vol] 362 10*3/uL Normal 150-450 [facility] Comment on above: Order Comment: Order Date: 04/11/24 Order Info: [id number]- - CBCD Performed By: #### L 503.6030, L503.6550, L100.0100, L503.0105, L506.0250 #### [facility] [address] [place], [address] RBC (Bld) [#/Vol] 4.69 10*6/uL Normal 4.2-5.4 [facility] Comment on above: Order Comment: Order Date: 04/11/24 Order Info: [id number] - CBCD Performed By: #### L 503.6030, L503.6550, L100.0100, L503.0105, L506.0250 #### [facility] [address] [place], [address] RDW SD 44.9 fl High 35.1-43.9 [facility] Comment on above: Order Comment: Order Date: 04/11/24 Order Info: [id number] - CBCD Performed By: #### L 503.6030, L503.6550, L100.0100, L503.0105, L506.0250 #### [facility] [address] [place], [address] WBC (Bld) [#/Vol] 7.1 10*3/uL Normal 4.4-11.0 [facility] Comment on above: Order Comment: Order Date: 04/11/24 Order Info: [id number] - CBCD Performed By: #### L 503.6030, L503.6550, L100.0100, L503.0105, L506.0250 #### [facility] [address] [place], [address] Ferritinon 04-11-2024 Ferritin [Mass/Vol] 4 ng/mL Low 8-252 [facility] Comment on above: Order Comment: Order Date: 04/11/24Order Info: [id number] - IBCOrder Info: [id number] - FEROrder Info: [id number] - FOLSN Performed By: #### L 503.6030, L503.6550, L100.0100, L503.0105, L506.0250 ####[facility] [address] [place], [address] Folates, (Folic Acid)on FOLATES 16.70 ng/mL Normal 3.1-55.4 [facility] Comment on above: Order Comment: Order Date: 04/11/24Order Info: [id number] - IBCOrder Info: [id number] - FEROrder Info: 8 - FOLSN Performed By: #### L 503.6030, L503.6550, L100.0100, L503.0105, L506.0250 ####[facility] [address] [place], [address] Iron+Iron Binding Capacityon 04-11-2024 Iron [Mass/Vol] 16 ug/dL Low 50-170 [facility] Comment on above: Order Comment: Order Date: 04/11/24Order Info: [id number] - IBCOrder Info: [id number] - FEROrder Info: [id number] - FOLSN Performed By: #### L 503.6030, L503.6550, L100.0100, L503.0105, L506.0250 ####[facility] [address] [place], [address] IRON SATURATION 2.7 Low 15.0-55.0 [facility] Comment on above: Order Comment: Order Date: 04/11/24Order Info: [id number] - IBCOrder Info: [id number] - FEROrder Info: 2288 - FOLSN Performed By: #### L 503.6030, L503.6550, L100.0100, L503.0105, L506.0250 ####[facility] [address] [place], [address] TIBC 602 ug/dL High 250-450 [facility] Comment on above: Order Comment: Order Date: 04/11/24Order Info: [id number] - IBCOrder Info: [id number] - FEROrder Info: [id number] - FOLSN Performed By: #### L 503.6030, L503.6550, L100.0100, L503.0105, L506.0250 ####[facility] [address] [place], [address] Vitamin B12on 04-11-2024 Cobalamin (Vitamin B12) [Mass/Vol] 331 pg/mL Normal 211-911 [facility] Comment on above: Order Comment: Order Date: 04/11/24Order Info: [id number] - B12 Performed By: #### L 503.6030, L503.6550, L100.0100, L503.0105, L506.0250 ####[facility] [address] [place], [address] CNOVon 04-08-2024 CNOV Office Visit (UCWSTR ) NANI HIDALGO ([id number]) 3 F Date Time Provider Department 04/08/24 4:30 PM MARTHA AYOUB [facility] During your visit today, we recorded the following information about you: Martha Ayoub PA 04/08/2024 4:30 PM Signed 19-year-old female presenting requesting a note saying that she does not have anemia for the [place]. Advised patient she would need to have this form filled out by her primary care doctor. She we will contact her PCP today. Appointment canceled. Allergies As of Date: 04/08/2024 Noted Allergy Reaction BEE VENOM PROTEIN (HONEY BEE) 04/01/2022 7 - Swelling Date Reviewed: 04/05/2024 Reviewed by: Magi Leung LPN - Fully Assessed Primary Visit Diagnosis:Procedure not carried out [Z53.9] Prescriptions as of 04/08/2024 - methylPREDNISolone (MEDROL, MARY,) 4 mg Dose-Pack Follow dosing instructions, take with food. - albuterol HFA (PROVENTIL HFA, VENTOLIN HFA) 90 mcg/actuation inhaler Inhale 2 Puffs as instructed every 4 hours as needed for wheezing/shortness of breath. - benzonatate (TESSALON PERLES) 100 mg capsule Take 1 capsule by mouth three times a day as needed for cough. - TRI FEMYNOR 0.18/0.215/0.25 mg-35 mcg (28) Take 1 tablet by mouth once daily. Problem List As Of Date: 04/08/2024 (None) Encounter Status:Closed by MARTHA AYOUB on 04/08/24 [facility] CNOVon 04-05-2024 CNOV Office Visit (UCWSTR ) NANI HIDALGO ([id number]) 3 F Date Time Provider Department 04/05/24 2:00 PM MARYA ALEXJOS During your visit today, we recorded the following information about you: Temperature Pulse Respiration Blood pressure 98.3 degrees 74/minute 18/minute 98/64 Weight 48.5 kg Marya Alex APRN.CNP 04/05/2024 2:19 PM Signed This note was created using NoteWriter. Subjective Nani Hidalgo is a 19 year old female. Patient presents with left hand middle finger swelling from bee sting for 1 day Denies sob and swelling of mouth/tongue/throat Review of Systems Constitutional: Negative for chills and fever. Objective BP 98/64 Pulse 74 Temp 36.8 ?C (98.3 ?F) (Tympanic) Resp 18 Wt 48.5 kg (106 lb 14.8 oz) LMP 11/27/2022 SpO2 100% Physical Exam Constitutional: General: She is not in acute distress. Appearance: Normal appearance. She is not toxic-appearing. Skin: Neurological: Mental Status: She is alert. Assessment and Plan ASSESSMENT/PLAN: 1. Allergic reaction, initial encounter - ICD9: 995.3, ICD10: T78.40XA (primary diagnosis) Provided patient education on etiology and treatment. Advised ice therapy and antihistamine use. Take steroids as directed. If problem persists or gets worse, please follow up with pcp - METHYLPREDNISOLONE 4 MG TABLETS IN A DOSE PACK 2. Bee sting, undetermined intent, initial encounter - ICD9: 989.5, E980.9, ICD10: T63.444A See above plan - METHYLPREDNISOLONE 4 MG TABLETS IN A DOSE PACK VIVIEN Andrews Leanne, APRN.CNP 04/05/2024 2:07 PM Signed ACUTE ALLERGIC REACTION: Your exam shows you have had an allergic reaction. Symptoms of allergy reactions include itching, red rashes, hives, swelling around the face and tongue, and sometimes breathing difficulty. These reactions can be caused by pollens, drugs, foods, insect stings, and other environmental factors. It is often difficult to determine the exact cause of an allergy reaction, so further medical evaluation may be needed. It is important to avoid any products to which you think you are allergic. Once a reaction occurs, treatment may include epinephrine injections, and antihistamine or cortisone medicines. You should avoid aspirin, narcotics, and alcohol since these can make allergy reactions worse. Call your doctor or the emergency department right away if you have increased swelling in your mouth or throat, wheezing or other breathing problems, or if you faint. Allergies As of Date: 04/05/2024 Noted Allergy Reaction BEE VENOM PROTEIN (HONEY BEE) 04/01/2022 7 - Swelling Date Reviewed: 04/05/2024 Reviewed by: Magi Leung LPN - Fully Assessed Reason for Visit: bee sting left hand [Other] Cmt: X 2 days Primary Visit Diagnosis:Allergic reaction, initial encounter [T78.40XA] Other Visit Diagnosis:Bee sting, undetermined intent, initial encounter [T63.444A] Order(s):methylPREDNIS olone (MEDROL, MARY,) 4 mg Dose-PackFollow dosing instructions, take with food.Disp: 21 tabletRfl: 0 Prescriptions as of 04/05/2024 - methylPREDNISolone (MEDROL, MARY,) 4 mg Dose-Pack Follow dosing instructions, take with food. - albuterol HFA (PROVENTIL HFA, VENTOLIN HFA) 90 mcg/actuation inhaler Inhale 2 Puffs as instructed every 4 hours as needed for wheezing/shortness of breath. - benzonatate (TESSALON PERLES) 100 mg capsule Take 1 capsule by mouth three times a day as needed for cough. - TRI FEMYNOR 0.18/0.215/0.25 mg-35 mcg (28) Take 1 tablet by mouth once daily. Problem List As Of Date: 04/05/2024 (None) Other instructions from your clinician: ACUTE ALLERGIC REACTION: Your exam shows you have had an allergic reaction. Symptoms of allergy reactions include itching, red rashes, hives, swelling around the face and tongue, and sometimes breathing difficulty. These reactions can be caused by pollens, drugs, foods, insect stings, and other environmental factors. It is often difficult to determine the exact cause of an allergy reaction, so further medical evaluation may be needed. It is important to avoid any products to which you think you are allergic. Once a reaction occurs, treatment may include epinephrine injections, and antihistamine or cortisone medicines. You should avoid aspirin, narcotics, and alcohol since these can make allergy reactions worse. Call your doctor or the emergency department right away if you have increased swelling in your mouth or throat, wheezing or other breathing problems, or if you faint. Prescriptions ordered this encounter Disp Refills Start End METHYLPREDNISOLONE 4 MG TABLETS IN A* 21 t* 0 04/05/2024 04/11/2024 Sig: Follow dosing instructions, take with food. Medications Discontinued During This Encounter Prescriptions - predniSONE (DELTASONE) 10 mg tablet (Discontinued) Reported on 07/19/2022 Disposition: Re (more content not included)... Normal [facility] CNOVon 12-29-2023 CNOV Office Visit (UCWSTR ) NANI HIDALGO ([id number]) 3 F Date Time Provider Department 12/29/23 7:15 PM MARTHA AYOUB [facility] During your visit today, we recorded the following information about you: Temperature Pulse Respiration Blood pressure 100.1 degrees 103/minute 18/minute 110/64 Weight 50.1 kg Martha Ayoub PA 12/29/2023 7:44 PM Signed This note was created using GoodPeople. Subjective Nani Hidalgo is a 18 year old female. HPI 18-year-old female presents for cough, congestion, fever x 1 day. Patient states she got up last night and had nasal congestion and felt it was difficult to breathe through her nose. She started getting a cough last night as well. She states that her chest feels tight and hurts when she coughs. She states it also hurts to take a deep breath. She denies any wheezing. 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 She does vape. No chest pain currently. She reports she had a sore throat yesterday. She has a fever here, was unaware if she had 1 at home. She had a little bit of body aches today. She denies any sick contacts that she is aware of. She took Tylenol earlier which did help with her symptoms. Has not tried anything else [id number]. No other complaint. No past medical history on file. No past surgical history on file. ALLERGIES Bee Venom Protein (Honey Bee) MEDICATIONS TRI FEMYNOR 0.18/0.215/0.25 mg-35 mcg (28) Take 1 tablet by mouth once daily. predniSONE (DELTASONE) 10 mg tablet TAKE 4 TABLETS DAILY for 3 days then TAKE 3 TABLETS DAILY for 3 days then TAKE 2 TABLETS DAILY for 3 days then TAKE 1 TABLET DAILY for 3 days (Patient not taking: Reported on 07/19/2022) No family history on file. Social History Tobacco Use Smoking status: Never Smokeless tobacco: Never Tobacco comments: 2 smokers in the home Substance Use Topics Alcohol use: Never Drug use: Never Review of Systems Constitutional: Positive for chills and fever. HENT: Positive for congestion and sore throat. Negative for ear pain. Respiratory: Positive for cough, chest tightness and shortness of breath. Cardiovascular: Negative for chest pain. Gastrointestinal: Negative for diarrhea and vomiting. Objective BP 110/64 Pulse 103 Temp 37.8 ?C (100.1 ?F) (Tympanic) Resp 18 Wt 50.1 kg (110 lb 7.2 oz) LMP 11/27/2022 SpO2 98% Physical Exam Vitals and nursing note reviewed. Constitutional: General: She is not in acute distress. Appearance: Normal appearance. She is not toxic-appearing. HENT: Right Ear: Tympanic membrane and ear canal normal. Left Ear: Tympanic membrane and ear canal normal. Nose: Congestion present. Mouth/Throat: Mouth: Mucous membranes are moist. Pharynx: Posterior oropharyngeal erythema present. No oropharyngeal exudate. Tonsils: 1+ on the right. 1+ on the left. Eyes: Conjunctiva/sclera: Conjunctivae normal. Cardiovascular: Rate and Rhythm: Normal rate and regular rhythm. Pulmonary: Effort: Pulmonary effort is normal. Breath sounds: Wheezing (Mild wheezing left lower lobe) present. No rhonchi or rales. Chest: Chest wall: Tenderness present. Comments: Mild tenderness to touch. Patient does have sunburn on the chest. No blistering. Lymphadenopathy: Cervical: Cervical adenopathy present. Neurological: Mental Status: She is alert. ASSESSMENT/PLAN: 1. Fever, unspecified fever cause - ICD9: 780.60, ICD10: R50.9 (primary diagnosis) - STREP A MOLECULAR (POC)- negative - XR CHEST 2V FRONTAL/LAT -unremarkable with no acute radiographic abnormality. - suspect viral illness. -Recommend Tylenol, Motrin, fluids, rest. -Declines COVID/flu swab 2. Acute cough - ICD9: 786.2, ICD10: R05.1 - XR CHEST 2V FRONTAL/LAT-unremarkab le with no acute radiographic abnormality -Suspect viral - -Due to chest tightness, mild wheezing, Rx for albuterol given. Patient does have history of sports asthma. -Rx for Tessalon Perles -Declines COVID/flu swab 3. Sore throat - ICD9: 462, ICD10: J02.9 - suspect viral - Group A strep molecular testing negative - Discussed supportive care treatment with fluids, rest and analgesia. - STREP A MOLECULAR (POC) Diagnosis and treatment plan were discussed and questions were answered to the patient's satisfaction. Pt acknowledged understanding of concepts and follow up plan. Specific signs and symptoms that would indicate the need for higher level of care were discussed in detail warranting prompt ER evaluation. MARLENY Grimaldo Allergies As of Date: 12/29/2023 Noted Allergy Reaction BEE VENOM PROTEIN (HONEY BEE) 04/01/2022 7 - Swelling Date Reviewed: 12/29/2023 Reviewed by: Magi Leung LPN - Fully Assessed Reason for Visit: Cough [28] Cmt: Cough, chest hurts, congestion x 1 day Primary Visit Diagnosis:Fever, unspecified fever ca (more content not included)... Normal [facility] STREP A MOLECULAR (POC)on Procedural Control Valid [facility] Strep A (POCT) Negative Negative [facility] XR CHEST 2V FRONTAL/LATon XR CHEST 2V FRONTAL/LAT * * *Final Repor t* * * DATE OF EXAM: Dec 29 2023 7:32PM WOX [id number] - XR CHEST 2V FRONTAL/LAT / PROCEDURE REASON: multiple diagnoses * * * * Physician Interpretation * * * * EXAMINATION: CHEST RADIOGRAPH (2 VIEW FRONTAL and LATERAL) CLINICAL HISTORY: Fever, unspecified fever cause Acute cough MQ: XC2_6 EXAM DATE/TIME: 12/29/2023 7:32 PM COMPARISON: No relevant prior studies available. RESULT: Lines, tubes, and devices: None. Lungs and pleura: No consolidation. No lung mass. No pleural effusion. No pneumothorax. Cardiomediastinal silhouette: Normal cardiomediastinal silhouette. Bones and soft tissues: Unremarkable. IMPRESSION: Unremarkable exam with no acute radiographic abnormality. Collar Fuser: [facility] Transcribe Date/Time: Dec 29 2023 7:39P Dictated by : HARIS SIMON MD This examination was interpreted and the report reviewed and electronically signed by: HARIS SIMON MD on Dec 29 2023 7:39PM EST [id number] Normal [facility] XR Chest PA and Lateralon IMPRESSION: Unremarkable exam with no acute radiographic abnormality. Collar Fuser: [facility] Transcribe Date/Time: Dec 29 2023 7:39P Dictated by : HARIS SIMON MD This examination was interpreted and the report reviewed and electronically signed by: HARIS SIMON MD on Dec 29 2023 7:39PM EST DIVISION OF RADIOLOGY * * *Final Report* * * DATE OF EXAM: Dec 29 2023 7:32PM WOX 5291 - XR CHEST 2V FRONTAL/LAT / PROCEDURE REASON: multiple diagnoses * * * * Physician Interpretation * * * * EXAMINATION: CHEST RADIOGRAPH (2 VIEW FRONTAL & LATERAL) CLINICAL HISTORY: Fever, unspecified fever cause Acute cough MQ: XC2_6 EXAM DATE/TIME: 12/29/2023 7:32 PM COMPARISON: No relevant prior studies available. RESULT: Lines, tubes, and devices: None. Lungs and pleura: No consolidation. No lung mass. No pleural effusion. No pneumothorax. Cardiomediastinal silhouette: Normal cardiomediastinal silhouette. Bones and soft tissues: Unremarkable. DIVISION OF RADIOLOGY Provider, [facility] - 12/29/2023 * * *Final Report* * * DATE OF EXAM: Dec 29 2023 7:32PM WOX 5291 - XR CHEST 2V FRONTAL/LAT / PROCEDURE REASON: multiple diagnoses * * * * Physician Interpretation * * * * EXAMINATION: CHEST RADIOGRAPH (2 VIEW FRONTAL & LATERAL) CLINICAL HISTORY: Fever, unspecified fever cause Acute cough MQ: XC2_6 EXAM DATE/TIME: 12/29/2023 7:32 PM COMPARISON: No relevant prior studies available. RESULT: Lines, tubes, and devices: None. Lungs and pleura: No consolidation. No lung mass. No pleural effusion. No pneumothorax. Cardiomediastinal silhouette: Normal cardiomediastinal silhouette. Bones and soft tissues: Unremarkable. IMPRESSION IMPRESSION: Unremarkable exam with no acute radiographic abnormality. Collar Fuser: [facility] Transcribe Date/Time: Dec 29 2023 7:39P Dictated by : HARIS SIMON MD This examination was interpreted and the report reviewed and electronically signed by: HARIS SIMON MD on Dec 29 2023 7:39PM EST [facility] Radiology Study observation (narrative) [facility] XR Chest PA and LateralOrder ed By: [facility] Provider on 12-29-2023 [facility] Culture, urineOrdered By: Dr Susan Sam on 11-30-2022 Bacteria identified Cx Nom (U) Escherichia coli [facility] Absolute lymphocyte countOrd ered By: Dr. Sam on 11-28-2022 Lymphocytes Auto (Unsp spec) [#/Vol] 1.48 10*3/uL 0.83-4.51 [facility] Basophil percentageOrdered B y: Dr. Sam on 11-28-2022 Basophils/100 WBC (Bld) 1.2 % 0-1 [facility] Bilirubin [Mass/Vol] 0.80 mg/dL 0.20-1.00 [facility] Comment on above: For patients on eltr ombopag therapy, use of Dimension [place] TBIL is not recommended. Eosinophils/100 WBC (Bld) 2.2 % 0-3 [facility] Neutrophils (Bld) [#/Vol] 3.8 10*3/uL 2.0-7.7 [facility] Neutrophils/100 WBC (Bld) 63.0 % 34-64 [facility] Protein [Mass/Vol] 6.9 g/dL 6.4-8.2 [facility] WBC (Bld) [#/Vol] 6.0 10*3/uL 4.5-13.0 [facility] Blood erythrocytes count (nu mber/volume)Ordered By: Dr. Sam on 11-28-2022 RBC (Bld) [#/Vol] 4.98 10*6/uL 4.1-4.8 [facility] Blood hemoglobin measurement (mass/volume)Ordered By: Dr. Sam on 11-28-2022 Hemoglobin (Bld) [Mass/Vol] 11.6 g/dL 12.0-15.0 [facility] Blood lymphocytes/100 leukoc ytesOrdered By: Dr. Sam on 11-28-2022 Lymphocytes/100 WBC (Bld) 24.5 % 25-45 [facility] Blood monocytes/100 leukocyt esOrdered By: Dr. Sam on 11-28-2022 Monocytes/100 WBC (Bld) 8.8 % 3-6 [facility] Blood platelet mean volumeOr dered By: Dr. Sam on 11-28-2022 Platelet mean volume (Bld) [Entitic vol] 10.8 fL 6.2-12.0 [facility] Determination of erythrocyte mean corpuscular volume (MCV)Ordered By: Dr. Sam on 11-28-2022 MCV (RBC) [Entitic vol] 76.7 fL 78-96 [facility] Direct bilirubinOrdered By: Dr. Sam on 11-28-2022 Bilirubin.direct [Mass/Vol] 0.19 mg/dL 0.00-0.30 [facility] Hematocrit Auto (Bld) [Volum e fraction]Ordered By: Dr. Sam on 11-28-2022 Hematocrit (Bld) [Volume fraction] 38.2 % 37-46 [facility] Laboratory - Chemistry and C hemistry - challengeOrdered By: Dr. Sam on 11-28-2022 ALP [Catalytic activity/Vol] 56 U/L 47-119 [facility] ALT [Catalytic activity/Vol] 15 U/L 13-56 [facility] Globulin (S) [Mass/Vol] 3.5 g/dL 2.2-4.2 [facility] Laboratory - Hematology and Cell countsOrdered By: Dr. Sam on 11-28-2022 Erythrocyte distribution width (RBC) [Entitic vol] 42.3 fL 35.1-43.9 [facility] Erythrocyte distribution width (RBC) [Ratio] 15.4 % 11.6-14.6 [facility] Immature granulocytes/100 WBC (Bld) 0.300 % 0.0-0.9 [facility] Comment on above: IG% - Immature Granu locytes (promyelocytes, myelocytes and metamyelocytes) > 1% indicates that a LEFT SHIFT is Present. MCH (RBC) [Entitic mass] 23.3 pg 25.0-35.0 [facility] Nucleated RBC/100 WBC (Bld) [Ratio] 0 % 0-5 [facility] MCHC Auto (RBC) [Mass/Vol]Or dered By: Dr. Sam on 11-28-2022 MCHC (RBC) [Mass/Vol] 30.4 g/dL 32-36 [facility] Platelets bldOrdered By: Dr. Sam on 11-28-2022 Platelets (Bld) [#/Vol] 354 10*3/uL 150-450 [facility] Serum or plasma albumin eris urement (mass/volume)Ordered By: Dr. Sam on 11-28-2022 Albumin [Mass/Vol] 3.4 g/dL 3.2-5.0 [facility] Thin prep Papanicolaou smear with manual screeningOrdered By: Dr. Sam on 11-28-2022 Thin prep Papanicolaou smear with manual screening 9 U/L 15-37 [facility] Basophil percentageOrdered B y: Kaley Caravjal on 11-25-2022 Chloride [Moles/Vol] 107 mmol/L 98-107 [facility] Glucose [Mass/Vol] 74 mg/dL 74-106 [facility] Potassium [Moles/Vol] 4.1 mmol/L 3.5-5.1 [facility] Sodium [Moles/Vol] 138 mmol/L 136-145 [facility] Laboratory - Chemistry and C hemistry - challengeOrdered By: Kaley Carvajal on 11-25-2022 CO2 [Moles/Vol] 25.0 mmol/L 21.0-32.0 [facility] Urea nitrogen/Creatinine [Mass ratio] 14.8 mg/mg 10-20 [facility] No Panel InformationOrdered By: Kaley Carvajal on 11-25-2022 Estimated GFR (MDRD) Amer 117 mL/min >60 [facility] Comment on above: GFR Calc Estimated GFR (MDRD) Non-Af Amer 97 mL/min >60 [facility] Comment on above: Non- GFR Calc Thyroid Stimulating Hormone (TSH) 1.56 uIU/mL 0.358-3.74 [facility] Serum or plasma calcium eris urement (mass/volume)Ordered By: Kaley Carvajal on 11-25-2022 Calcium [Mass/Vol] 9.3 mg/dL 8.5-10.1 [facility] Serum or plasma creatinine m easurement (mass/volume)Ordered By: Kaley Carvajal on 11-25-2022 Creatinine [Mass/Vol] 0.81 mg/dL 0.55-1.02 [facility] Comment on above: The validity of the calculated GFR & GFRAA in patients over 70 years has not been determined. Clinical correlation is essential. Serum or plasma urea nitroge n measurement (mass/volume)Ordered By: Kaley Carvajal on 11-25-2022 Urea nitrogen [Mass/Vol] 12 mg/dL 7-18 [facility] Thin prep Papanicolaou smear with manual screeningOrdered By: Kaley Carvajal on 11-25-2022 Thin prep Papanicolaou smear with manual screening 6 5-15 [facility] STREP A MOLECULAR (POC)on Procedural Control Valid [facility] Strep A (POCT) Negative Negative [facility] Vital Signs Date Time Vital Sign Value Performing Clinician Facility 01-20-2025 19:05-0400 Body temperature 97.8 [degF] Dr. Reynold Nolasco DO Work Phone: [facility] 01-20-2025 19:05-0400 Diastolic blood pressure 86 mm[Hg] Dr. Reynold Nolasco DO Work Phone: [facility] 01-20-2025 19:05-0400 Heart rate 89 /min Dr. Reynold Nolasco DO Work Phone: [facility] 01-20-2025 19:05-0400 Respiratory rate 14 /min Dr. Reynold Nolasco DO Work Phone: [facility] 01-20-2025 19:05-0400 SaO2% (BldA) [Mass fraction] 97 % Dr. Reynold Nolasco DO Work Phone: [facility] 01-20-2025 19:05-0400 Systolic blood pressure 129 mm[Hg] Dr. Reynold Nolasco DO Work Phone: [facility] 01-20-2025 15:36-0400 Body height 157.[address] Reynold Nolasco DO Work Phone: [facility] 01-20-2025 15:36-0400 Body mass index (BMI) [Ratio] 23 kg/m2 Dr. Reynold Nolasco DO Work Phone: [facility] 01-20-2025 15:36-0400 Body weight 57.[address] Reynold Nolasco DO Work Phone: [facility] 07-07-2024 09:26-0500 Body mass index (BMI) [Ratio] 20.41 kg/m2 Kelly Yuen Work Phone: [facility] 07-07-2024 09:26-0500 Body temperature 98.29 [degF] Kelly Huntleyight Work Phone: [facility] 07-07-2024 09:26-0500 Body weight 49.67 kg Kelly Huntleyight Work Phone: [facility] 07-07-2024 09:26-0500 Diastolic blood pressure 83 mm[Hg] Kellyricky Yuen Work Phone: [facility] 07-07-2024 09:26-0500 Heart rate 94 /min Kelly Huntleyight Work Phone: [facility] 07-07-2024 09:26-0500 SaO2% (BldA) [Mass fraction] 98 % Kelly Huntleyight Work Phone: [facility] 07-07-2024 09:26-0500 Systolic blood pressure 130 mm[Hg] Kelly Huntleyight Work Phone: [facility] 05-26-2024 14:35-0400 Body temperature 97.7 [degF] Treatment Wstr Work Phone: [facility] 05-26-2024 14:35-0400 Diastolic blood pressure 74 mm[Hg] Treatment Wstr Work Phone: [facility] 05-26-2024 14:35-0400 Heart rate 76 /min Treatment Wstr Work Phone: [facility] 05-26-2024 14:35-0400 SaO2% (BldA) [Mass fraction] 100 % Treatment Wstr Work Phone: [facility] 05-26-2024 14:35-0400 Systolic blood pressure 116 mm[Hg] Treatment Wstr Work Phone: [facility] 05-24-2024 15:00-0400 Body temperature 98.91 [degF] Treatment Wstr Work Phone: [facility] 05-24-2024 15:00-0400 Diastolic blood pressure 87 mm[Hg] Treatment Wstr Work Phone: [facility] 05-24-2024 15:00-0400 Heart rate 88 /min Treatment Wstr Work Phone: [facility] 05-24-2024 15:00-0400 Respiratory rate 18 /min Treatment Wstr Work Phone: [facility] 05-24-2024 15:00-0400 SaO2% (BldA) [Mass fraction] 100 % Treatment Wstr Work Phone: [facility] 05-24-2024 15:00-0400 Systolic blood pressure 128 mm[Hg] Treatment Wstr Work Phone: [facility] 05-20-2024 15:45-0400 Body temperature 98.6 [degF] Treatment Wstr Work Phone: [facility] 05-20-2024 15:45-0400 Diastolic blood pressure 66 mm[Hg] Treatment Wstr Work Phone: [facility] 05-20-2024 15:45-0400 Heart rate 104 /min Treatment Wstr Work Phone: [facility] 05-20-2024 15:45-0400 Respiratory rate 14 /min Treatment Wstr Work Phone: [facility] 05-20-2024 15:45-0400 SaO2% (BldA) [Mass fraction] 100 % Treatment Wstr Work Phone: [facility] 05-20-2024 15:45-0400 Systolic blood pressure 95 mm[Hg] Treatment Wstr Work Phone: [facility] 05-18-2024 08:28-0400 Body temperature 98.91 [degF] Treatment Wstr Work Phone: [facility] 05-18-2024 08:28-0400 Diastolic blood pressure 66 mm[Hg] Treatment Wstr Work Phone: [facility] 05-18-2024 08:28-0400 Heart rate 96 /min Treatment Wstr Work Phone: [facility] 05-18-2024 08:28-0400 Respiratory rate 14 /min Treatment Wstr Work Phone: [facility] 05-18-2024 08:28-0400 SaO2% (BldA) [Mass fraction] 100 % Treatment Wstr Work Phone: [facility] 05-18-2024 08:28-0400 Systolic blood pressure 100 mm[Hg] Treatment Wstr Work Phone: [facility] 05-16-2024 08:48-0400 Diastolic blood pressure 69 mm[Hg] Treatment Wstr Work Phone: [facility] 05-16-2024 08:48-0400 Heart rate 64 /min Treatment Wstr Work Phone: [facility] 05-16-2024 08:48-0400 Systolic blood pressure 106 mm[Hg] Treatment Wstr Work Phone: [facility] 05-16-2024 07:53-0400 Body temperature 97.9 [degF] Treatment Wstr Work Phone: [facility] 05-16-2024 07:53-0400 SaO2% (BldA) [Mass fraction] 100 % Treatment Wstr Work Phone: [facility] 05-05-2024 10:35-0400 Body height 156 cm Kelly Yuen Work Phone: [facility] 05-05-2024 10:35-0400 Body mass index (BMI) [Ratio] 19.76 kg/m2 Kellyvita Yuen Work Phone: [facility] 05-05-2024 10:35-0400 Body temperature 97.5 [degF] Kelly Yuen Work Phone: [facility] 05-05-2024 10:35-0400 Body weight 48.08 kg Kelly Yuen Work Phone: [facility] 05-05-2024 10:35-0400 Diastolic blood pressure 67 mm[Hg] Kelly Yuen Work Phone: [facility] 05-05-2024 10:35-0400 Heart rate 105 /min Kelly Yuen Work Phone: [facility] 05-05-2024 10:35-0400 Respiratory rate 12 /min Kellyvita Yuen Work Phone: [facility] 05-05-2024 10:35-0400 SaO2% (BldA) [Mass fraction] 100 % Kelly Alpa Work Phone: [facility] 05-05-2024 10:35-0400 Systolic blood pressure 98 mm[Hg] Kelly Yuen Work Phone: [facility] 04-05-2024 13:59-0400 Body temperature 98.29 [degF] Marya Alex APRN.MANAGER CARDIAC CATH Work Phone: [facility] 04-05-2024 13:59-0400 Body weight 48.5 kg Marya Alex APRN.MANAGER CARDIAC CATH Work Phone: [facility] 04-05-2024 13:59-0400 Diastolic blood pressure 64 mm[Hg] Marya Alex BRAKE ADJUSTER.MANAGER CARDIAC CATH Work Phone: [facility] 04-05-2024 13:59-0400 Heart rate 74 /min Marya Alex BRAKE ADJUSTER.MANAGER CARDIAC CATH Work Phone: [facility] 04-05-2024 13:59-0400 Respiratory rate 18 /min Maray Alex BRAKE ADJUSTER.MANAGER CARDIAC CATH Work Phone: [facility] 04-05-2024 13:59-0400 SaO2% (BldA) [Mass fraction] 100 % Marya Alex BRAKE ADJUSTER.MANAGER CARDIAC CATH Work Phone: [facility] 04-05-2024 13:59-0400 Systolic blood pressure 98 mm[Hg] Marya Alex BRAKE ADJUSTER.MANAGER CARDIAC CATH Work Phone: [facility] 12-29-2023 19:11-0400 Body temperature 100.09 [degF] Krislyn Aberegg PA Work Phone: [facility] 12-29-2023 19:11-0400 Body weight 50.1 kg Krislyn Aberegg PA Work Phone: [facility] 12-29-2023 19:11-0400 Diastolic blood pressure 64 mm[Hg] Krislyn Aberegg PA Work Phone: [facility] 12-29-2023 19:11-0400 Heart rate 103 /min Krislyn Aberegg PA Work Phone: [facility] 12-29-2023 19:11-0400 Respiratory rate 18 /min Krislyn Aberegg PA Work Phone: [facility] 12-29-2023 19:11-0400 SaO2% (BldA) [Mass fraction] 98 % Krislyn Aberegg PA Work Phone: [facility] 12-29-2023 19:11-0400 Systolic blood pressure 110 mm[Hg] Krislyn Aberegg PA Work Phone: [facility] 04-01-2022 11:01-0400 Body temperature 98.29 [degF] Tammi Camden BRAKE ADJUSTER.MANAGER CARDIAC CATH Work Phone: [facility] 04-01-2022 11:01-0400 Body weight 57.97 kg Tammi Camden BRAKE ADJUSTER.MANAGER CARDIAC CATH Work Phone: [facility] 04-01-2022 11:01-0400 Diastolic blood pressure 68 mm[Hg] Tammi Camden BRAKE ADJUSTER.MANAGER CARDIAC CATH Work Phone: [facility] 04-01-2022 11:01-0400 Heart rate 97 /min Tammi Camden BRAKE ADJUSTER.MANAGER CARDIAC CATH Work Phone: [facility] 04-01-2022 11:01-0400 Respiratory rate 18 /min Tammi Camden BRAKE ADJUSTER.MANAGER CARDIAC CATH Work Phone: [facility] 04-01-2022 11:01-0400 SaO2% (BldA) [Mass fraction] 100 % Tammi Camden BRAKE ADJUSTER.MANAGER CARDIAC CATH Work Phone: [facility] 04-01-2022 11:01-0400 Systolic blood pressure 122 mm[Hg] Tammi Camden BRAKE ADJUSTER.MANAGER CARDIAC CATH Work Phone: [facility] Encounters Encounter Date Encounter Type Care Provider Facility Start: 01-20-2025 End: 01-20-2025 Emergency department patient visit Dr. Reynold Nolasco DO Work Phone: -Emergency Department Work Phone: Start: 07-07-2024 End: 07-07-2024 ambulatory Kelly Yuen Work Phone: Hematology/Oncology Comment on above: Menorrhagia with reg ular cycle (Primary Dx); Hx of iron deficiency anemia Start: 07-07-2024 End: 07-07-2024 Patient encounter procedure Kelly Yuen Work Phone: Hematology/Oncology Start: 07-04-2024 End: 07-04-2024 ambulatory BUSTER RIGGINS Facility:[facility] Start: 05-26-2024 End: 05-27-2024 ambulatory [facility] Hematology/Oncology Comment on above: Iron deficiency anem ia due to chronic blood loss (Primary Dx) Start: 05-26-2024 End: 05-26-2024 Patient encounter procedure Treatment Rm 15 Andrew Yolande Wstr Work Phone: Hematology/Oncology Start: 05-24-2024 End: 05-24-2024 ambulatory BUSTER Sonny [facility] Hematology/Oncology Comment on above: Iron deficiency anem ia due to chronic blood loss (Primary Dx) Start: 05-24-2024 End: 05-24-2024 Patient encounter procedure Treatment Rm 14 Andrew Fh Wstr Work Phone: Hematology/Oncology Start: 05-20-2024 End: 05-20-2024 Patient encounter procedure Treatment Rm 14 Andrew Yolande Wstr Work Phone: Hematology/Oncology Start: 05-20-2024 End: 05-20-2024 ambulatory [facility] Hematology/Oncology Comment on above: Iron deficiency anem ia due to chronic blood loss (Primary Dx) Start: 05-18-2024 End: 05-18-2024 ambulatory KELLY YUEN Hematology/Oncology Comment on above: Iron deficiency anem ia due to chronic blood loss (Primary Dx) Start: 05-18-2024 End: 05-18-2024 Patient encounter procedure Treatment Rm 15 Andrew Yolande Wstr Work Phone: Hematology/Oncology Start: 05-17-2024 End: 05-17-2024 ambulatory [facility] Facility:[facility] Start: 05-16-2024 End: 05-16-2024 Telephone encounter Olive BOURNE Hematology/Oncology Comment on above: SOCIAL WORK SERVICES (1ST TIME TREATMENT) Start: 05-16-2024 End: 05-16-2024 ambulatory [facility] Hematology/Oncology Comment on above: Iron deficiency anem ia due to chronic blood loss (Primary Dx) Start: 05-16-2024 End: 05-16-2024 Patient encounter procedure Treatment Rm 14 Andrew [facility] Work Phone: Hematology/Oncology Start: 05-05-2024 End: 05-05-2024 [facility] Facility:[facility] Start: 05-05-2024 End: 05-05-2024 ambulatory Kelly Yuen Work Phone: Hematology/Oncology Comment on above: Iron deficiency anem ia due to chronic blood loss (Primary Dx) Start: 05-05-2024 End: 05-05-2024 Patient encounter procedure Kelly Yuen Work Phone: Hematology/Oncology Start: 04-11-2024 End: 04-11-2024 ambulatory [facility] Facility:[facility] Start: 04-08-2024 End: 04-08-2024 [facility] Facility:[facility] Start: 04-08-2024 End: 04-08-2024 Patient encounter procedure Martha FARMER Work Phone: [facility] Comment on above: Procedure not stephani d out (Primary Dx) Start: 04-05-2024 End: 04-05-2024 [facility] Facility:[facility] Start: 04-05-2024 End: 04-05-2024 Patient encounter procedure Marya Alex APRN.CNP Work Phone: [facility] Comment on above: Allergic reaction, i nitial encounter (Primary Dx); Bee sting, undetermined intent, initial encounter Start: 12-29-2023 End: 12-29-2023 Subsequent hospital visit by physician [facility] Work Phone: Radiology Comment on above: Fever, unspecified f ever cause [R50.9] Start: 12-29-2023 End: 12-29-2023 [facility] Facility:[facility] Start: 12-29-2023 End: 12-29-2023 Patient encounter procedure Martha FARMER Work Phone: [facility] Comment on above: Fever, unspecified f ever cause (Primary Dx); Acute cough; Sore throat Start: 11-28-2022 End: 11-28-2022 [facility] Work Phone: Start: 11-28-2022 End: 11-28-2022 Patient encounter procedure [facility] Start: 11-25-2022 End: 11-25-2022 Patient encounter procedure [facility] Start: 04-02-2022 Telephone encounter Ishan law APRN.GAUTAM Work Phone: [facility] Comment on above: Results Start: 04-01-2022 End: 04-01-2022 Patient encounter procedure Tammi Hannah APRN.CNP Work Phone: [facility] Comment on above: Sore throat (Primary Dx); URI, acute; Acute vaginitis Procedures Date Procedure Procedure Detail Performing Clinician Start: 01-20-[address] Reynold Nolasco DO Work Phone: Start: 01-20-2025 Urnls dip stick/tabl et reagent auto microscopy Dr. Reynold Nolasco DO Work Phone: Start: 01-20-2025 X-ray of chest, PA a nd lateral views Dr. Reynold Nolasco DO Work Phone: Start: 12-29-2023 Radiologic exam ches t 2 views Martha FARMER Work Phone: Start: 12-29-2023 STREP A MOLECULAR (POC) Martha FARMER Work Phone: Start: 04-01-2022 STREP A MOLECULAR (POC) Tammi Hannah APRN.CNP Work Phone: Urine culture Plan of Treatment Date Care Activity Detail Author Start: 10-16-2026 Urine microalbumin profile DTaP,Tdap,Td Vaccine (7 - Td or Tdap) [facility] Start: 01-20-2025 [facility] Start: 01-20-2025 [facility] Start: 07-12-2024 End: 07-12-2024 Patient encounter procedure 07/12/2024 1:30 PM EST Office Visit OB/Gynecology [address] [facility] [place] [id number] Shaila Suggs APRN.MANAGER CARDIAC CATH [address] [place] [id number] Menorrhagia with regular cycle [N92.0] OB/Gynecology Comment on above: Menorrhagia with reg ular cycle [N92.0] Start: 07-05-2024 End: 07-05-2024 ambulatory 07/05/2024 8:30 AM EST Visit (SP) Office Hematology/Oncology [address] [place] [address] Kelly Yuen [address] [place] [address] 2MO OV/LABS 07/04 Hematology/Oncology Comment on above: 2MO OV/LABS 07/04 Start: 07-04-2024 End: 07-04-2024 ambulatory 07/04/2024 8:00 AM EST Results Only [place] [facility] [address] [place] [address] LABS [place] [facility] Comment on above: LABS Start: 05-26-2024 End: 05-26-2024 ambulatory 05/26/2024 3:00 PM EDT Visit (SP) Office Hematology/Oncology [address] [place] [address] 2ND FLOOR Hematology/Oncology Comment on above: 2ND FLOOR Start: 05-24-2024 End: 05-24-2024 ambulatory 05/24/2024 3:30 PM EDT Visit (SP) Office Hematology/Oncology [address] [place] [address] 2ND FLOOR Hematology/Oncology Comment on above: 2ND FLOOR Start: 05-20-2024 End: 05-20-2024 ambulatory 05/20/2024 3:30 PM EDT Visit (SP) Office Hematology/Oncology [address] [place] [address] 2ND FLOOR Hematology/Oncology Comment on above: 2ND FLOOR Start: 05-18-2024 End: 05-18-2024 ambulatory 05/18/2024 8:30 AM EDT Visit (SP) Office Hematology/Oncology [address] [place] [address] 2ND FLOOR Hematology/Oncology Comment on above: 2ND FLOOR Start: 05-17-2024 End: 05-17-2024 Patient encounter procedure 05/17/2024 3:20 PM EDT Office [place] [address] pre pay for infusions call Beverley Hidalgo [phone] ok per patient [facility] Comment on above: pre pay for infusion s call Beverley Hidalgo [phone] ok per patient Start: 05-16-2024 End: 05-16-2024 ambulatory 05/16/2024 8:00 AM EDT Visit (SP) Office Hematology/Oncology [address] [place] [address] 2ND FLOOR Hematology/Oncology Comment on above: 2ND FLOOR Start: 04-03-2024 Covid-19 Vaccine () Covid-19 Vaccine () [facility] Start: 04-03-2024 Covid-19 Vaccine () Covid-19 Vaccine () [facility] Start: 04-03-2024 Influenza vaccination [facility] Start: 08-03-2023 Behavioral Health Screening Behavioral Health Screening [facility] Start: 04-03-2023 Covid-19 Vaccine ( season) Covid-19 Vaccine () [facility] Start: 04-03-2022 Influenza vaccination INFLUENZA (#1) [facility] Start: 02-28-2022 Anxiety Screening Anxiety Screening [facility] Start: 02-28-2022 CHLAMYDIA SCREENING () CHLAMYDIA SCREENING () [facility] Start: 02-28-2022 Depression Screening Depression Scre ening [facility] Start: 02-28-2022 GC (GONORRHEA) SCREE DEEPA (18-24) GC (GONORRHEA) SCREENING (18-) [facility] Start: 02-28-2022 HEPATITIS C SCREENING HEPATITIS C [facility] Start: 02-28-2022 Hepatitis C screening Hepatitis C [facility] Start: 02-28-2022 HIV SCREENING HIV SCREENING [facility] Start: 02-28-2022 HIV screening HIV Screening [facility] Start: 02-28-2022 Screening for Chlamy giles trachomatis Chlamydia Screening () [facility] Start: 07-10-2021 COVID-19 VACCINE (3 - Booster for Pfizer series) COVID-19 VACCINE (3 - Booster for Pfizer series) [facility] Start: 2020 Meningococcal B Vacc ine: Consider Based On Risk (1 of 2 - Patient Seeks Protection) Meningococcal B Vaccine: Consider Based On Risk (1 of 2 - Patient Seeks Protection) [facility] Start: 2020 MENINGOCOCCAL CONJUG ATE (1 - 2-dose series) MENINGOCOCCAL CONJUGATE (1 - 2-dose series) [facility] Start: 02-28-2018 PEDS TO ADULT TRANSI TION ANNUAL ASSESSMENT PEDS TO ADULT TRANSITION ANNUAL ASSESSMENT [facility] Start: 2016 Adult depression screening assessment DEPRESSION SCREENING [facility] Start: 2016 PEDS TO ADULT TRANSI TION INITIAL DISCUSSION PEDS TO ADULT TRANSITION INITIAL DISCUSSION [facility] Start: 02-28-2015 HPV VACCINE (1 - 2-d ose series) HPV VACCINE (1 - 2-dose series) [facility] Start: 02-28-2014 MENINGOCOCCAL B: Consider based on risk (1 of 2 - Risk Bexsero 2-dose series) MENINGOCOCCAL B: Consider based on risk (1 of 2 - Risk Bexsero 2-dose series) [facility] Start: 02-28-2011 Urine microalbumin profile DTAP,TDAP,TD (1 - Tdap) [facility] Start: 2004 HEPATITIS B (1 of 3 - 3-dose series) HEPATITIS B (1 of 3 - 3-dose series) [facility] BACTERIAL VAGINOSIS AMPLIFICATION BACTERIAL VAGINOSIS AMPLIFICATION Lab Routine Acute vaginitis 04/01/2022 11:54 AM EDT [facility] Work Phone: REJI / TRICHOMONA S AMPLIFICATION REJI / TRICHOMONAS AMPLIFICATION Microbiology Routine Acute vaginitis 04/01/2022 11:55 AM EDT [facility] Work Phone: Patient Education ED Dizziness, Uncertain Cause [facility] Work Phone: Patient referral [facility] Work Phone: Payers Date Payer Category Payer Self-pay [id number] 2023 Unknown [id number] 2023 Unknown [id number] 2023 Private Health Insurance [id number] 2014 Private Health Insurance [id number] Private Health Insurance [employer] [id number] Unknown [id number] Unknown [id number] Social History Date Type Detail Facility Start: [facility]22 [facility] Start: 04-01-2022 Tobacco use and exposure Smokeless tobacco non-user [facility] Start: 04-01-2022 End: 07-07-2024 Alcohol intake Lifetime non-drinker (finding) [facility] Start: 04-01-2022 Tobacco Comment 2 smokers in the hema e [facility] Start: 2005 Sex Assigned At Not on file [facility] Start: 03-22-2022 End: 04-01-2022 Exposure to SARS-CoV-2 (event) Not sure [facility] Work Phone: Start: 04-28-2019 [facility] Start: 2005 Sex Assigned At Female W [facility] Start: 12-29-2023 End: 05-05-2024 History of Social function [facility] Start: 12-29-2023 End: 05-05-2024 Tobacco use panel [facility] National Score (1-100), lower number is lower risk Not on file [facility] Start: 01-20-2025 [facility] Sm[facility] tobacco daily (finding) [facility] Mental Status Date Assessment Result Facility 01-20-2025 Cognitive function Appropriate;[facility] Work Phone: Clinical Notes 04-01-2022 to 01-20-2025 Kelly Yuen - 07/07/2024 9:36 AM Kinga CalleCONRADO - 07/07/2024 9:26 AM Kinga CalleCONRADO - 07/07/2024 9:26 AM ESTTelephone Encounter - Daryl Garcia - 05/16/2024 11:46 AM EDT Note Date & Type Note Facility 01-20-2025 Radiology Diagnostic study note [facility] Imaging Services [address] [place], [place] [address] Chest PA and Lateral MR#: [id number] Acct: [id number] Name: NANI HIDALGO Rep #: [id number] 31 : 2005 F 19 From: Beryl Crowell MD PCP: Dr. Kishore Sam MD Status: REG ER Study:Chest PA and Lateral Date of Exam: 01/20/25 Exam# [id number] Ordering Dr: Reynold Nolasco DO EXAM: XR Chest, 2 Views CLINICAL INDICATION: CHEST PAIN TECHNIQUE: Frontal and lateral views of the chest. COMPARISON: No relevant prior studies available. FINDINGS: LUNGS AND PLEURAL SPACES: Unremarkable. No consolidation. No pneumothorax. HEART: Unremarkable. No cardiomegaly. MEDIASTINUM: Unremarkable. Normal mediastinal contour. BONES/JOINTS: Unremarkable. No acute fracture. RAD/Chest PA and Lateral IMPRESSION: No acute cardiopulmonary process. Reading Location: [id number] CC: Dr. Kishore Sam MD; Dr. Reynold Nolasco DO ~ Collar Fuser: Signed [facility] 07-07-2024 History of Present illness Narrative Nani Hidalgo 2005 Encounter date: 07/07/2024 HPI: Nani Hidalgo is a 19 year old female with no significant PMHx presenting as a referral from her PCP for LIZ. Ms. Hidalgo presents today with her mother for visit. She notes that she is trying to join the [employer] and needs a letter stating that she is cleared from anemia. Recent lab results from PCP do indicate LIZ. Reviewed CBC and iron studies with patient and mother. Likely caused by chronic blood loss from previously heavy menstrual cycles. Pt is on OC to control heavy bleeding. This is now under control. She has been on PO iron in the past, was unable to tolerate due to nausea. PCP placed orders for IV iron, per pt this was not discussed with her and PCP does not have access to infusion center thus she was referred here. Fatigued. She notes that appetite is good. Does not follow any particular dietary restrictions. Notes she stopped eating for a time last year following a break up. This has resolved. Denies aches or pains. No SOB, CP, or palpitations. No REHMAN, dizziness, or changes in vision. Denies N/V/C/D. No rash or skin changes. Denies hematuria, hematochezia, hematemesis. No abnormal bruising. No family or personal hx of blood or bleeding disorders. No hx of cancers. Interval Hx: Ms. Hidalgo presents today for follow up and lab review after completing IV iron series. She reports feeling much better after receiving IV iron. Fatigue and mood improved. Hx of heavy menses controlled with OC. She has missed a few days on and off over the last month, some spotting as a result. PCP has been rx OC for her. Has not seen ic design engineer. Taking PO iron without issues, tolerating well. No N/V/C. Denies hematuria, hematochezia. Denies fevers, chills, NS. No unintentional weight loss. No lumps or bumps. Appetite and energy level improved. Current Outpatient Medications Medication Sig Dispense Refill TRI FEMYNOR 0.18/0.215/0.25 mg-35 mcg (28) Take 1 tablet by mouth once daily. ferrous sulfate (IRON) 325 mg (65 mg iron) tablet Take 325 mg by mouth three times a week. No current facility-administered medications for this visit. ALLERGIES Allergen Reactions Bee Venom Protein (* Swelling No family history on file. Social History Tobacco Use Smoking status: Never Smokeless tobacco: Never Tobacco comments: 2 smokers in the home Substance Use Topics Alcohol use: Never Drug use: Never Review of Systems: Negative except as noted in HPI reviewed 07/07/2024 Physical Exam: BP 130/83 Pulse 94 Temp 98.3 Wt 109 lb 8 oz (49.7kg) SpO2 98% LMP 11/27/2022 General: Age-appropriate well developed. Appears well. HEENT: Normocephalic, no sclera icterus, external ears normal, oral cavity clear. Neck: Supple, no JVD. Chest: Clear bilaterally, no wheezes, not labored. Heart: Normal S1 and S2, no abnormal sounds Abdomen: Soft, nontender, nondistended, bowel sounds present, no organomegaly or mass, no rigidity. Extremities: No cyanosis, clubbing, gross deformities Neurological: no focal deficits. Skin: Warm and dry with no rashes or ulcerations. Nodes: No palpable adenopathy in the cervical, supraclavicular, infraclavicular, or axillary regions. Hematologic: no bruising or petechiae. Psychiatric: Alert and oriented x3. I have performed the physical exam today (07/07/2024) and have edited the note to correlate with current findings. Labs: Latest Reference Range & Units 05/05/24 11:37 07/04/24 08:05 Ferritin 14.7 - 205.1 ng/mL 7.5 (L) 228.0 (H) Iron 41 - 186 ug/dL 48 96 TIBC 232 - 386 ug/dL >548 (H) 346 Transferrin Saturation 15.0 - 57.0 % <8.8 (L) 27.7 (L): Data is abnormally low (H): Data is abnormally high Latest Reference Range & Units 05/05/24 11:37 07/04/24 08:05 WBC 3.70 - 11.00 k/uL 8.88 7.67 RBC 3.90 - 5.20 m/uL 5.12 4.97 Hemoglobin 11.5 - 15.5 g/dL 12.0 13.1 Hematocrit 36.0 - 46.0 % 38.3 41.0 Platelet Count 150 - 400 k/uL 324 319 MCV 80.0 - 100.0 fL 74.8 (L) 82.5 MCH 26.0 - 34.0 pg 23.4 (L) 26.4 MCHC 30.5 - 36.0 g/dL 31.3 32.0 MPV 9.0 - 12.7 fL 9.9 9.5 RDW-CV 11.5 - 15.0 % 15.6 (H) 20.4 (H) DTYPE Auto Auto (L): Data is abnormally low (H): Data is abnormally high Assessment and Plan: Ms. Hidalgo is a 19 year old presenting for LIZ Iron Deficiency Anemia, resolved. - likely chronic blood loss on OC to manage heavy menses - reviewed PCP labs from 04/2024 reflecting LIZ, per note orders placed for IV iron was not completed - would also recommend IV iron - pt unable to tolerate PO due to GI side effects. - tolerating better every other day dosing. Pt is not consistent with taking. - s/p IV iron sucrose 200x5, 05/16/24 - 05/26/24, tolerated well - pt noted significant improvement in fatigue, mood - referral to ic design engineer to discuss OC options as well as management of menorrhagia. - letter provided clearing patient from hematology perspective. Anemia resolved. - continue to follow with PCP for routine lab drawn, follow up PRN. Advised to call with any questions or concerns. Kelly Yuen APRN.MANAGER CARDIAC CATH I spent a total of 30 minutes on the date of the service which included preparing to see the patient, [id number] patient care, completing clinical documentation, and ordering medications, tests, or procedures. Portions of this note including HPI, ROS, impression/plan may have been copied forward as to provide important historical information essential in contributing to medical decision making. Documentation has been reviewed and edited as necessary to support clinical decision making for today's visit and to reflect my own independent evaluation of this patient. documented in this encounter [facility] 07-07-2024 Nurse Note Est. Pt. Discuss recent lab results Kinga Green LPN [facility] 07-07-2024 Nurse Note Est. Pt. Discuss recent lab results Kinga Green LPN documented in this encounter [facility] 05-16-2024 Telephone encounter Note I reviewed the patient on the 1st-time treatment report. The patient does not have a cancer diagnosis or a chemo/radiation regimen. No further Financial Navigator intervention is needed at this time. [facility] 05-16-2024 Miscellaneous Notes I reviewed the patient on the 1st-time treatment report. The patient does not have a cancer diagnosis or a chemo/radiation regimen. No further Financial Navigator intervention is needed at this time. documented in this encounter [facility] 05-16-2024 Telephone encounter Note SOCIAL WORK FOLLOW UP NOTE: CANCER CENTER Pt noted on [facility] 1st time treatment report. Pt has a non-oncology regimen. No social work follow up indicated. DARRELL Gonzales [facility] 05-16-2024 Miscellaneous Notes SOCIAL WORK FOLLOW UP NOTE: CANCER CENTER Pt noted on [facility] 1st time treatment report. Pt has a non-oncology regimen. No social work follow up indicated. DARRELL Gonzales documented in this encounter [facility] 05-05-2024 Note HNO ID: [id number] Author: KELLY YUEN, ? Service: ? Author Type: Nurse Practitioner Type: Progress Notes Filed: 05/09/2024 13:07 Note Text: Progress Note Nani Hidalgo 2005 Encounter date: 05/05/2024 HPI: Nani Hidalgo is a 19 year old female with no significant PMHx presenting as a referral from her PCP for LIZ. Ms. Hidalgo presents today with her mother for visit. She notes that she is trying to join the [employer] and needs a letter stating that she is cleared from anemia. Recent lab results from PCP do indicate LIZ. Reviewed CBC and iron studies with patient and mother. Likely caused by chronic blood loss from previously heavy menstrual cycles. Pt is on OC to control heavy bleeding. This is now under control. She has been on PO iron in the past, was unable to tolerate due to nausea. PCP placed orders for IV iron, per pt this was not discussed with her and PCP does not have access to infusion center thus she was referred here. Fatigued. She notes that appetite is good. Does not follow any particular dietary restrictions. Notes she stopped eating for a time last year following a break up. This has resolved. Denies aches or pains. No SOB, CP, or palpitations. No REHMAN, dizziness, or changes in vision. Denies N/V/C/D. No rash or skin changes. Denies hematuria, hematochezia, hematemesis. No abnormal bruising. No family or personal hx of blood or bleeding disorders. No hx of cancers. Current Outpatient Medications Medication Sig Dispense Refill TRI FEMYNOR 0.18/0.215/0.25 mg-35 mcg (28) Take 1 tablet by mouth once daily. No current facility-administered medications for this visit. ALLERGIES Allergen Reactions Bee Venom Protein (* Swelling No family history on file. Social History Tobacco Use Smoking status: Never Smokeless tobacco: Never Tobacco comments: 2 smokers in the home Substance Use Topics Alcohol use: Never Drug use: Never Review of Systems: Negative except as noted in HPI reviewed 05/05/2024 Physical Exam: BP 98/67 Pulse 105 Temp 97.5 Resp 12 Ht 5' 1.417 (1.56m) Wt 106 lb (48.1kg) SpO2 100% LMP 11/27/2022 BMI 19.76 kg/(m2). General: Age-appropriate well developed. Appears well. HEENT: Normocephalic, no sclera icterus, external ears normal, oral cavity clear. Neck: Supple, no JVD. Chest: Clear bilaterally, no wheezes, not labored. Heart: Normal S1 and S2, no abnormal sounds Abdomen: Soft, nontender, nondistended, bowel sounds present, no organomegaly or mass, no rigidity. Extremities: No cyanosis, clubbing, gross deformities Neurological: no focal deficits. Skin: Warm and dry with no rashes or ulcerations. Nodes: No palpable adenopathy in the cervical, supraclavicular, infraclavicular, or axillary regions. Hematologic: no bruising or petechiae. Psychiatric: Alert and oriented x3. Lab Results Component Value Date WBC 5.95 08/13/2016 HB 12.7 08/13/2016 MCV 83.8 08/13/2016 PLT 285 08/13/2016 No results found for: NA, K, CO2, BUN, CREAT, TBILI, TPROT, ALB, ALKPHOS, ALT, AST Assessment and Plan: Ms. Hidalgo is a 19 year old presenting for LIZ Iron Deficiency Anemia - likely chronic blood loss on OC to manage heavy menses - reviewed PCP labs from 04/2024 reflecting LIZ, per note orders placed for IV iron was not completed - would also recommend IV iron - will repeat labs today as over 4 weeks ago - pt unable to tolerate PO due to GI side effects. - Offered 300mg vs 200mg dosing and schedule pt would prefer 200mg - Plan for IV iron sucrose 200x5 - recheck iron studies in about 8 weeks Kelly Yuen APRN.MANAGER CARDIAC CATH I spent a total of 45 minutes on the date of the service which included preparing to see the patient, [id number] patient care, completing clinical documentation, and ordering medications, tests, or procedures. Portions of this note including HPI, ROS, impression/plan may have been copied forward as to provide important historical information essential in contributing to medical decision making. Documentation has been reviewed and edited as necessary to support clinical decision making for today's visit and to reflect my own independent evaluation of this patient. [facility] 05-05-2024 History of Present illness Narrative Progress Note Nani Hidalgo 2005 Encounter date: 05/05/2024 HPI: Nani Hidalgo is a 19 year old female with no significant PMHx presenting as a referral from her PCP for LIZ. Ms. Hidalgo presents today with her mother for visit. She notes that she is trying to join the [employer] and needs a letter stating that she is cleared from anemia. Recent lab results from PCP do indicate LIZ. Reviewed CBC and iron studies with patient and mother. Likely caused by chronic blood loss from previously heavy menstrual cycles. Pt is on OC to control heavy bleeding. This is now under control. She has been on PO iron in the past, was unable to tolerate due to nausea. PCP placed orders for IV iron, per pt this was not discussed with her and PCP does not have access to infusion center thus she was referred here. Fatigued. She notes that appetite is good. Does not follow any particular dietary restrictions. Notes she stopped eating for a time last year following a break up. This has resolved. Denies aches or pains. No SOB, CP, or palpitations. No REHMAN, dizziness, or changes in vision. Denies N/V/C/D. No rash or skin changes. Denies hematuria, hematochezia, hematemesis. No abnormal bruising. No family or personal hx of blood or bleeding disorders. No hx of cancers. Current Outpatient Medications Medication Sig Dispense Refill TRI FEMYNOR 0.18/0.215/0.25 mg-35 mcg (28) Take 1 tablet by mouth once daily. No current facility-administered medications for this visit. ALLERGIES Allergen Reactions Bee Venom Protein (* Swelling No family history on file. Social History Tobacco Use Smoking status: Never Smokeless tobacco: Never Tobacco comments: 2 smokers in the home Substance Use Topics Alcohol use: Never Drug use: Never Review of Systems: Negative except as noted in HPI reviewed 05/05/2024 Physical Exam: BP 98/67 Pulse 105 Temp 97.5 Resp 12 Ht 5' 1.417 (1.56m) Wt 106 lb (48.1kg) SpO2 100% LMP 11/27/2022 BMI 19.76 kg/(m^2). General: Age-appropriate well developed. Appears well. HEENT: Normocephalic, no sclera icterus, external ears normal, oral cavity clear. Neck: Supple, no JVD. Chest: Clear bilaterally, no wheezes, not labored. Heart: Normal S1 and S2, no abnormal sounds Abdomen: Soft, nontender, nondistended, bowel sounds present, no organomegaly or mass, no rigidity. Extremities: No cyanosis, clubbing, gross deformities Neurological: no focal deficits. Skin: Warm and dry with no rashes or ulcerations. Nodes: No palpable adenopathy in the cervical, supraclavicular, infraclavicular, or axillary regions. Hematologic: no bruising or petechiae. Psychiatric: Alert and oriented x3. Lab Results Component Value Date WBC 5.95 08/13/2016 HB 12.7 08/13/2016 MCV 83.8 08/13/2016 PLT 285 08/13/2016 No results found for: NA, K, CO2, BUN, CREAT, TBILI, TPROT, ALB, ALKPHOS, ALT, AST Assessment and Plan: Ms. Hidalgo is a 19 year old presenting for LIZ Iron Deficiency Anemia - likely chronic blood loss on OC to manage heavy menses - reviewed PCP labs from 04/2024 reflecting LIZ, per note orders placed for IV iron was not completed - would also recommend IV iron - will repeat labs today as over 4 weeks ago - pt unable to tolerate PO due to GI side effects. - Offered 300mg vs 200mg dosing and schedule pt would prefer 200mg - Plan for IV iron sucrose 200x5 - recheck iron studies in about 8 weeks Kelly Yuen APRN.MANAGER CARDIAC CATH I spent a total of 45 minutes on the date of the service which included preparing to see the patient, [id number] patient care, completing clinical documentation, and ordering medications, tests, or procedures. Portions of this note including HPI, ROS, impression/plan may have been copied forward as to provide important historical information essential in contributing to medical decision making. Documentation has been reviewed and edited as necessary to support clinical decision making for today's visit and to reflect my own independent evaluation of this patient. documented in this encounter [facility] 04-08-2024 Note HNO ID: [id number] Author: MARTHA AYOUB PA Service: ? Author Type: Physician Linoleum Installer Type: Progress Notes Filed: 04/08/2024 16:30 Note Text: 19-year-old female presenting requesting a note saying that she does not have anemia for the [facility]. Advised patient she would need to have this form filled out by her primary care doctor. She we will contact her PCP today. Appointment canceled. [facility] 04-08-2024 History of Present illness Narrative 19-year-old female presenting requesting a note saying that she does not have anemia for the [facility]. Advised patient she would need to have this form filled out by her primary care doctor. She we will contact her PCP today. Appointment canceled. documented in this encounter [facility] 04-05-2024 Instructions Marya Alex APRN.CNP - 04/05/2024 2:07 PM EDT ACUTE ALLERGIC REACTION: Your exam shows you have had an allergic reaction. Symptoms of allergy reactions include itching, red rashes, hives, swelling around the face and tongue, and sometimes breathing difficulty. These reactions can be caused by pollens, drugs, foods, insect stings, and other environmental factors. It is often difficult to determine the exact cause of an allergy reaction, so further medical evaluation may be needed. It is important to avoid any products to which you think you are allergic. Once a reaction occurs, treatment may include epinephrine injections, and antihistamine or cortisone medicines. You should avoid aspirin, narcotics, and alcohol since these can make allergy reactions worse. Call your doctor or the emergency department right away if you have increased swelling in your mouth or throat, wheezing or other breathing problems, or if you faint. documented in this encounter [facility] 04-05-2024 Note HNO ID: [id number] Author: MARYA ALEX APRN.GAUTAM Service: ? Author Type: Nurse Practitioner Type: Progress Notes Filed: 04/05/2024 14:19 Note Text: This note was created using [employer]. Subjective Nani Hidalgo is a 19 year old female. Patient presents with left hand middle finger swelling from bee sting for 1 day Denies sob and swelling of mouth/tongue/throat Review of Systems Constitutional: Negative for chills and fever. Objective BP 98/64 Pulse 74 Temp 36.8 ?C (98.3 ?F) (Tympanic) Resp 18 Wt 48.5 kg (106 lb 14.8 oz) LMP 11/27/2022 SpO2 100% Physical Exam Constitutional: General: She is not in acute distress. Appearance: Normal appearance. She is not toxic-appearing. Skin: Neurological: Mental Status: She is alert. Assessment and Plan ASSESSMENT/PLAN: 1. Allergic reaction, initial encounter - ICD9: 995.3, ICD10: T78.40XA (primary diagnosis) Provided patient education on etiology and treatment. Advised ice therapy and antihistamine use. Take steroids as directed. If problem persists or gets worse, please follow up with pcp - METHYLPREDNISOLONE 4 MG TABLETS IN A DOSE PACK 2. Bee sting, undetermined intent, initial encounter - ICD9: 989.5, E980.9, ICD10: T63.444A See above plan - METHYLPREDNISOLONE 4 MG TABLETS IN A DOSE PACK Marya Alex APRN.CNP [facility] 04-05-2024 History of Present illness Narrative Images from the original note were not included. This note was created using [employer]. Subjective Nani Hidalgo is a 19 year old female. Patient presents with left hand middle finger swelling from bee sting for 1 day Denies sob and swelling of mouth/tongue/throat Review of Systems Constitutional: Negative for chills and fever. Objective BP 98/64 Pulse 74 Temp 36.8 C (98.3 F) (Tympanic) Resp 18 Wt 48.5 kg (106 lb 14.8 oz) LMP 11/27/2022 SpO2 100% Physical Exam Constitutional: General: She is not in acute distress. Appearance: Normal appearance. She is not toxic-appearing. Skin: Neurological: Mental Status: She is alert. Assessment and Plan ASSESSMENT/PLAN: 1. Allergic reaction, initial encounter - ICD9: 995.3, ICD10: T78.40XA (primary diagnosis) Provided patient education on etiology and treatment. Advised ice therapy and antihistamine use. Take steroids as directed. If problem persists or gets worse, please follow up with pcp - METHYLPREDNISOLONE 4 MG TABLETS IN A DOSE PACK 2. Bee sting, undetermined intent, initial encounter - ICD9: 989.5, E980.9, ICD10: T63.444A See above plan - METHYLPREDNISOLONE 4 MG TABLETS IN A DOSE PACK Marya Alex APRN.GAUTAM documented in this encounter [facility] 12-29-2023 History of Present illness Narrative Radiology Service Progress Note PATIENT NAME: Nani Hidalgo DATE OF SERVICE: December 29, 2023 TIME: 7:25 PM PATIENT IDENTITY VERIFICATION COMPLETED USING TWO (2) IDENTIFIERS: Name and Date of confirmed by patient verbally. FALL SCREENING: Has the patient had 2 falls in the last year or 1 fall with injury or currently using an Ambulatory Assistive Device (Walker, Cane, Wheelchair, Crutches, etc.)? No PATIENT GENDER DATA: Female. status: : No status: NO. PATIENT RELEVANT IMPLANT DATA REVIEWED: Yes PATIENT PRESENTS WITH AN IMPLANTABLE OR ATTACHED MEDICAL INFORMATION OFFICER: No RADIOLOGY DEPARTMENT: General X-ray: Exam(s) Completed: Chest X-Ray PERIPHERAL IV DATA: Not applicable SIGNED BY: RT Shonda(R) December 29, 2023 7:25 PM documented in this encounter [facility] 12-29-2023 Note HNO ID: [id number] Author: HERB ARROYO RT(Samara) Service: Radiology Author Type: Technologist Type: Progress Notes Filed: 12/29/2023 19:32 Note Text: Radiology Service Progress Note PATIENT NAME: Nani Hidalgo DATE OF SERVICE: December 29, 2023 TIME: 7:25 PM PATIENT IDENTITY VERIFICATION COMPLETED USING TWO (2) IDENTIFIERS: Name and Date of confirmed by patient verbally. FALL SCREENING: Has the patient had 2 falls in the last year or 1 fall with injury or currently using an Ambulatory Assistive Device (Walker, Cane, Wheelchair, Crutches, etc.)? No PATIENT GENDER DATA: Female. status: : No status: NO. PATIENT RELEVANT IMPLANT DATA REVIEWED: Yes PATIENT PRESENTS WITH AN IMPLANTABLE OR ATTACHED MEDICAL INFORMATION OFFICER: No RADIOLOGY DEPARTMENT: General X-ray: Exam(s) Completed: Chest X-Ray PERIPHERAL IV DATA: Not applicable SIGNED BY: RT Shonda(Samara) December 29, 2023 7:25 PM [facility] 12-29-2023 Note HNO ID: [id number] Author: MARTHA AYOUB PA Service: ? Author Type: Physician Linoleum Installer Type: Progress Notes Filed: 12/29/2023 19:44 Note Text: This note was created using NoteWriter. Subjective Nani Hidalgo is a 18 year old female. HPI 18-year-old female presents for cough, congestion, fever x 1 day. Patient states she got up last night and had nasal congestion and felt it was difficult to breathe through her nose. She started getting a cough last night as well. She states that her chest feels tight and hurts when she coughs. She states it also hurts to take a deep breath. She denies any wheezing. 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 She does vape. No chest pain currently. She reports she had a sore throat yesterday. She has a fever here, was unaware if she had 1 at home. She had a little bit of body aches today. She denies any sick contacts that she is aware of. She took Tylenol earlier which did help with her symptoms. Has not tried anything else [id number]. No other complaint. No past medical history on file. No past surgical history on file. ALLERGIES Bee Venom Protein (Honey Bee) MEDICATIONS TRI FEMYNOR 0.18/0.215/0.25 mg-35 mcg (28) Take 1 tablet by mouth once daily. predniSONE (DELTASONE) 10 mg tablet TAKE 4 TABLETS DAILY for 3 days then TAKE 3 TABLETS DAILY for 3 days then TAKE 2 TABLETS DAILY for 3 days then TAKE 1 TABLET DAILY for 3 days (Patient not taking: Reported on 07/19/2022) No family history on file. Social History Tobacco Use Smoking status: Never Smokeless tobacco: Never Tobacco comments: 2 smokers in the home Substance Use Topics Alcohol use: Never Drug use: Never Review of Systems Constitutional: Positive for chills and fever. HENT: Positive for congestion and sore throat. Negative for ear pain. Respiratory: Positive for cough, chest tightness and shortness of breath. Cardiovascular: Negative for chest pain. Gastrointestinal: Negative for diarrhea and vomiting. Objective BP 110/64 Pulse 103 Temp 37.8 ?C (100.1 ?F) (Tympanic) Resp 18 Wt 50.1 kg (110 lb 7.2 oz) LMP 11/27/2022 SpO2 98% Physical Exam Vitals and nursing note reviewed. Constitutional: General: She is not in acute distress. Appearance: Normal appearance. She is not toxic-appearing. HENT: Right Ear: Tympanic membrane and ear canal normal. Left Ear: Tympanic membrane and ear canal normal. Nose: Congestion present. Mouth/Throat: Mouth: Mucous membranes are moist. Pharynx: Posterior oropharyngeal erythema present. No oropharyngeal exudate. Tonsils: 1+ on the right. 1+ on the left. Eyes: Conjunctiva/sclera: Conjunctivae normal. Cardiovascular: Rate and Rhythm: Normal rate and regular rhythm. Pulmonary: Effort: Pulmonary effort is normal. Breath sounds: Wheezing (Mild wheezing left lower lobe) present. No rhonchi or rales. Chest: Chest wall: Tenderness present. Comments: Mild tenderness to touch. Patient does have sunburn on the chest. No blistering. Lymphadenopathy: Cervical: Cervical adenopathy present. Neurological: Mental Status: She is alert. ASSESSMENT/PLAN: 1. Fever, unspecified fever cause - ICD9: 780.60, ICD10: R50.9 (primary diagnosis) - STREP A MOLECULAR (POC)- negative - XR CHEST 2V FRONTAL/LAT -unremarkable with no acute radiographic abnormality. - suspect viral illness. -Recommend Tylenol, Motrin, fluids, rest. -Declines COVID/flu swab 2. Acute cough - ICD9: 786.2, ICD10: R05.1 - XR CHEST 2V FRONTAL/LAT-unremarkable with no acute radiographic abnormality -Suspect viral - -Due to chest tightness, mild wheezing, Rx for albuterol given. Patient does have history of sports asthma. -Rx for Tessalon Perles -Declines COVID/flu swab 3. Sore throat - ICD9: 462, ICD10: J02.9 - suspect viral - Group A strep molecular testing negative - Discussed supportive care treatment with fluids, rest and analgesia. - STREP A MOLECULAR (POC) Diagnosis and treatment plan were discussed and questions were answered to the patient's satisfaction. Pt acknowledged understanding of concepts and follow up plan. Specific signs and symptoms that would indicate the need for higher level of care were discussed in detail warranting prompt ER evaluation. MARLENY Grimaldo [facility] 12-29-2023 History of Present illness Narrative Images from the original note were not included. This note was created using Qioriter. Subjective Nani Hidalgo is a 18 year old female. HPI 18-year-old female presents for cough, congestion, fever x 1 day. Patient states she got up last night and had nasal congestion and felt it was difficult to breathe through her nose. She started getting a cough last night as well. She states that her chest feels tight and hurts when she coughs. She states it also hurts to take a deep breath. She denies any wheezing. 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 She does vape. No chest pain currently. She reports she had a sore throat yesterday. She has a fever here, was unaware if she had 1 at home. She had a little bit of body aches today. She denies any sick contacts that she is aware of. She took Tylenol earlier which did help with her symptoms. Has not tried anything else [id number]. No other complaint. No past medical history on file. No past surgical history on file. ALLERGIES Bee Venom Protein (Honey Bee) MEDICATIONS TRI FEMYNOR 0.18/0.215/0.25 mg-35 mcg (28) Take 1 tablet by mouth once daily. predniSONE (DELTASONE) 10 mg tablet TAKE 4 TABLETS DAILY for 3 days then TAKE 3 TABLETS DAILY for 3 days then TAKE 2 TABLETS DAILY for 3 days then TAKE 1 TABLET DAILY for 3 days (Patient not taking: Reported on 07/19/2022) No family history on file. Social History Tobacco Use Smoking status: Never Smokeless tobacco: Never Tobacco comments: 2 smokers in the home Substance Use Topics Alcohol use: Never Drug use: Never Review of Systems Constitutional: Positive for chills and fever. HENT: Positive for congestion and sore throat. Negative for ear pain. Respiratory: Positive for cough, chest tightness and shortness of breath. Cardiovascular: Negative for chest pain. Gastrointestinal: Negative for diarrhea and vomiting. Objective BP 110/64 Pulse 103 Temp 37.8 C (100.1 F) (Tympanic) Resp 18 Wt 50.1 kg (110 lb 7.2 oz) LMP 11/27/2022 SpO2 98% Physical Exam Vitals and nursing note reviewed. Constitutional: General: She is not in acute distress. Appearance: Normal appearance. She is not toxic-appearing. HENT: Right Ear: Tympanic membrane and ear canal normal. Left Ear: Tympanic membrane and ear canal normal. Nose: Congestion present. Mouth/Throat: Mouth: Mucous membranes are moist. Pharynx: Posterior oropharyngeal erythema present. No oropharyngeal exudate. Tonsils: 1+ on the right. 1+ on the left. Eyes: Conjunctiva/sclera: Conjunctivae normal. Cardiovascular: Rate and Rhythm: Normal rate and regular rhythm. Pulmonary: Effort: Pulmonary effort is normal. Breath sounds: Wheezing (Mild wheezing left lower lobe) present. No rhonchi or rales. Chest: Chest wall: Tenderness present. Comments: Mild tenderness to touch. Patient does have sunburn on the chest. No blistering. Lymphadenopathy: Cervical: Cervical adenopathy present. Neurological: Mental Status: She is alert. ASSESSMENT/PLAN: 1. Fever, unspecified fever cause - ICD9: 780.60, ICD10: R50.9 (primary diagnosis) - STREP A MOLECULAR (POC)- negative - XR CHEST 2V FRONTAL/LAT -unremarkable with no acute radiographic abnormality. - suspect viral illness. -Recommend Tylenol, Motrin, fluids, rest. -Declines COVID/flu swab 2. Acute cough - ICD9: 786.2, ICD10: R05.1 - XR CHEST 2V FRONTAL/LAT-unremarkable with no acute radiographic abnormality -Suspect viral - -Due to chest tightness, mild wheezing, Rx for albuterol given. Patient does have history of sports asthma. -Rx for Tessalon Perles -Declines COVID/flu swab 3. Sore throat - ICD9: 462, ICD10: J02.9 - suspect viral - Group A strep molecular testing negative - Discussed supportive care treatment with fluids, rest and analgesia. - STREP A MOLECULAR (POC) Diagnosis and treatment plan were discussed and questions were answered to the patient's satisfaction. Pt acknowledged understanding of concepts and follow up plan. Specific signs and symptoms that would indicate the need for higher level of care were discussed in detail warranting prompt ER evaluation. MARLENY Grimaldo documented in this encounter [facility] 04-02-2022 Miscellaneous Notes Patient given results and verbalized understanding of instructions given. Amanda Ferrari Please notify that testing was positive for reji/yeast. Diflucan should be sufficient, f/u with story reader or pcp if s/s persist. documented in this encounter [facility] 04-01-2022 Instructions Tammi Hannah APRN.CNP - 04/01/2022 11:22 AM EDT Rest, increase water intake Motrin or Tylenol as needed for fever or pain. Salt water gargles, chloraseptic spray or lozenges as needed for sore throat. Warm beverages, honey. Nasal saline spray as needed Cool mist humidifier at night Robitussin DM or Delsym as ordered on package Tylenol (generic acetaminophen) 500 mg-2 tabs every 8 hrs. as needed for fever and aches Ibuprofen 600 mg (3-200mg tablets) every 6 hours A cold normally lasts 7-10 days. If your symptoms are lasting longer, develop fever, or worsening by that time instead of improving then return to clinic or follow up with PCP for re-evaluation. documented in this encounter [facility] 04-01-2022 History of Present illness Narrative Subjective The history is provided by the patient. No resident medical officer was used. HPI Nani Hidalgo is a 17 year old female who presents today for CC of sore throat, headache and cough that started on Thursday morning. She has used ibuprofen with short term relief. She is also is on steroids for a rash. She usually gets a yeast infection, she is having vaginal itching. She had a PCR covid test that was negative. BP 122/68 Pulse 97 Temp 36.8 C (98.3 F) Resp 18 Wt 58 kg (127 lb 12.8 oz) LMP (LMP Unknown) SpO2 100% Social History Tobacco Use Smoking status: Never Smokeless tobacco: Never Tobacco comments: 2 smokers in the home Substance Use Topics Alcohol use: Never Drug use: Never No past medical history on file. I have confirmed and edited as necessary, the [facility] Review of Systems Constitutional: Negative for chills and fever. HENT: Negative for congestion, ear pain, sinus pain and sore throat. Respiratory: Positive for cough. Negative for sputum production, shortness of breath and wheezing. Cardiovascular: Negative for chest pain. Genitourinary: Vaginal itching Musculoskeletal: Negative for myalgias. Neurological: Negative for headaches. Objective Physical Exam Vitals and nursing note reviewed. HENT: Head: Normocephalic and atraumatic. Right Ear: Tympanic membrane, ear canal and external ear normal. Left Ear: Tympanic membrane, ear canal and external ear normal. Nose: No mucosal edema, congestion or rhinorrhea. Right Sinus: No maxillary sinus tenderness or frontal sinus tenderness. Left Sinus: No maxillary sinus tenderness or frontal sinus tenderness. Mouth/Throat: Pharynx: Uvula midline. Posterior oropharyngeal erythema present. No oropharyngeal exudate. Cardiovascular: Rate and Rhythm: Normal rate and regular rhythm. Heart sounds: Normal heart sounds. Pulmonary: Effort: Pulmonary effort is normal. Breath sounds: Normal breath sounds. Lymphadenopathy: Head: Right side of head: No submental, submandibular or tonsillar adenopathy. Left side of head: No submental, submandibular or tonsillar adenopathy. Cervical: No cervical adenopathy. Skin: General: Skin is warm and dry. Neurological: Mental Status: She is alert. Psychiatric: Mood and Affect: Affect normal. Will self swab for yeast - declined exam ASSESSMENT/PLAN: 1. Sore throat - ICD9: 462, ICD10: J02.9 (primary diagnosis) - suspect viral - Alere Strep Test negative, no culture pending - STREP A MOLECULAR (POC) 2. URI, acute - ICD9: 465.9, ICD10: J06.9 - Discussed viral etiology and rationale for treatment. - Symptomatic treatment with prn analgesia - Supportive care with fluids and rest 3. Acute vaginitis - ICD9: 616.10, ICD10: N76.0 Treat with fluconazole, will call with culture results. - REJI / TRICHOMONAS AMPLIFICATION - BACTERIAL VAGINOSIS AMPLIFICATION Diagnosis and treatment plan were discussed and questions were answered to the patient's satisfaction. Pt acknowledged understanding of concepts and follow up plan. Specific signs and symptoms that would indicate the need for higher level of care were discussed in detail warranting prompt ER evaluation. Tammi Hannah APRN.MANAGER CARDIAC CATH documented in this encounter [facility] Evaluation note Diagnosis Sore throat- Primary Acute pharyngitis URI, acute Acute upper respiratory infections of unspecified site Acute vaginitis Vaginitis and vulvovaginitis, unspecified [facility] noteNo assessment information availableWCleveland Clinic Mentor [facility] Work Phone: Evaluation note* Diagnosis Fever, unspecified fever cause- Primary Acute cough Sore throat Acute pharyngitis Fever, unspecified fever cause Acute cough documented in this encounter [facility] note* Diagnosis Allergic reaction, initial encounter- Primary Bee sting, undetermined intent, initial encounter documented in this encounter [facility] note* Diagnosis Procedure not carried out- Primary Procedure not carried out for other reasons documented in this encounter [facility] note* Diagnosis Fever, unspecified fever cause Acute cough documented in this encounter [facility] note* Diagnosis Iron deficiency anemia due to chronic blood loss- Primary Iron deficiency anemia secondary to blood loss (chronic) documented in this encounter [facility] note* Diagnosis Iron deficiency anemia due to chronic blood loss- Primary Iron deficiency anemia secondary to blood loss (chronic) documented in this encounter [facility] note* Diagnosis Iron deficiency anemia due to chronic blood loss- Primary Iron deficiency anemia secondary to blood loss (chronic) documented in this encounter [facility] note* Diagnosis Iron deficiency anemia due to chronic blood loss- Primary Iron deficiency anemia secondary to blood loss (chronic) documented in this encounter [facility] note* Diagnosis Iron deficiency anemia due to chronic blood loss- Primary Iron deficiency anemia secondary to blood loss (chronic) documented in this encounter [facility] note* Diagnosis Iron deficiency anemia due to chronic blood loss- Primary Iron deficiency anemia secondary to blood loss (chronic) documented in this encounter [facility] note* Diagnosis Menorrhagia with regular cycle- Primary Excessive or frequent menstruation Hx of iron deficiency anemia Personal history of diseases of blood and blood-forming organs documented in this encounter [facility] for referral (narrative)No reason for referral information availableWCleveland Clinic 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 No January 20, 2025 4:37pm Reason for Referral Specialty Diagnoses / Procedures Referred By Contshreya t Referred To Contact Gynecology Diagnoses Menorrhagia with regular cycle Procedures CONSULT TO GYNECOLOGY OFFICE/OUTPATIENT [facility] 60 MINUTES Kelly Yuen [address] [place] [address] Referral ID Status Reason Start Date Expiration Date Visits Requested Visits Authorized [id number] Authorized PCP Requested Referral Auto-Generate d Referral 07/07/2024 07/07/2025 1 1 Additional Source Comments Source Comments (unrecognize d section and content) In the event this informatio n is protected by the Federal Confidentiality of Alcohol and Drug Abuse Patient Records regulations: The Federal rules restrict any use of the information to criminally investigate or prosecute any alcohol or drug abuse patient.[facility] the event this information is protected by the Federal Confidentiality of Alcohol and Drug Abuse Patient Records regulations: The Federal rules restrict any use of the information to criminally investigate or prosecute any alcohol or drug abuse patient.[facility] the event this information is protected by the Federal Confidentiality of Alcohol and Drug Abuse Patient Records regulations: The Federal rules restrict any use of the information to criminally investigate or prosecute any alcohol or drug abuse patient.[facility] the event this information is protected by the Federal Confidentiality of Alcohol and Drug Abuse Patient Records regulations: The Federal rules restrict any use of the information to criminally investigate or prosecute any alcohol or drug abuse patient.[facility] the event this information is protected by the Federal Confidentiality of Alcohol and Drug Abuse Patient Records regulations: The Federal rules restrict any use of the information to criminally investigate or prosecute any alcohol or drug abuse patient.[facility] the event this information is protected by the Federal Confidentiality of Alcohol and Drug Abuse Patient Records regulations: The Federal rules restrict any use of the information to criminally investigate or prosecute any alcohol or drug abuse patient.[facility] Campus[facility] the event this information is protected by the Federal Confidentiality of Alcohol and Drug Abuse Patient Records regulations: The Federal rules restrict any use of the information to criminally investigate or prosecute any alcohol or drug abuse patient.[facility] the event this information is protected by the Federal Confidentiality of Alcohol and Drug Abuse Patient Records regulations: The Federal rules restrict any use of the information to criminally investigate or prosecute any alcohol or drug abuse patient.[facility] the event this information is protected by the Federal Confidentiality of Alcohol and Drug Abuse Patient Records regulations: The Federal rules restrict any use of the information to criminally investigate or prosecute any alcohol or drug abuse patient.[facility] Campus[facility] the event this information is protected by the Federal Confidentiality of Alcohol and Drug Abuse Patient Records regulations: The Federal rules restrict any use of the information to criminally investigate or prosecute any alcohol or drug abuse patient.[facility] CampusIn the event this information is protected by the Federal Confidentiality of Alcohol and Drug Abuse Patient Records regulations: The Federal rules restrict any use of the information to criminally investigate or prosecute any alcohol or drug abuse patient.[facility] the event this information is protected by the Federal Confidentiality of Alcohol and Drug Abuse Patient Records regulations: The Federal rules restrict any use of the information to criminally investigate or prosecute any alcohol or drug abuse patient.[facility] CampusIn the event this information is protected by the Federal Confidentiality of Alcohol and Drug Abuse Patient Records regulations: The Federal rules restrict any use of the information to criminally investigate or prosecute any alcohol or drug abuse patient.[facility] CampusIn the event this information is protected by the Federal Confidentiality of Alcohol and Drug Abuse Patient Records regulations: The Federal rules restrict any use of the information to criminally investigate or prosecute any alcohol or drug abuse patient.[facility]In the event this information is protected by the Federal Confidentiality of Alcohol and Drug Abuse Patient Records regulations: The Federal rules restrict any use of the information to criminally investigate or prosecute any alcohol or drug abuse patient.[facility] Reason for Visit (unrecogniz ed section and content) Reason Comments Cough Pt denied SOB, chest pain, sore throat, Rehman x4 days. Vaginal Discharge Vaginal irritation x 1 day. Reason Comments Results Reason Comments Cough Cough, chest hurts, congestion x 1 day Reason Comments bee sting left hand X 2 days Reason Comments New Patient Evaluation Iron deficiency a nemia Reason Comments Non-Chemotherapy Treatment Specialty Diagnoses / Procedures Referred By Muriel Referred To Contact Diagnoses Iron deficiency anemia due to chronic blood loss Procedures IRON SUCROSE INJECTION PER 1 MG Randee Yuenianna [address] [place] [address] [facility] [address] [place] [address] Referral ID Status Reason Start Date Expiration Date V isits Requested Visits Authorized [id number] Authorized 05/05/2024 08/02/2024 99 99 Reason Comments SOCIAL WORK SERVICES (1ST TIME TREATMENT ) Specialty Diagnoses / Procedures Referred By Contshreya Referred To Contact Diagnoses Iron deficiency anemia due to chronic blood loss Procedures IRON SUCROSE INJECTION PER 1 MG Yuen, Kelly [address] [facility] [place] [address] Andrew [facility] [address] [place] [address] Reason Comments Established Patient Care Teams (unrecognized sec tion and content) Linen Attendant Relationship Specialty Start Date End Date Buster Riggins DO PCP - General Family Practice 06/04/15 Linen Attendant Relationship Specialty Start Date End Date Buster Riggins PCP - General Family Practice 06/04/15 Team Status: Active Member Role Status Dates Dr. Robinson Sam MD Family Provider Active Dr. Robinson Sam MD Primary Care Provider Activ e Team Status: Inactive Member Role Status Dates Dr. Robinson Sam MD Primary Care Provider, Refe rring Provider Active Kaley Carvajal [employer] Attending Provider Active Team Status: Inactive Member Role Status Dates Dr. Robinson Sam MD Primary Care Provider, Attending Provider, Referring Provider Active Linen Attendant Relationship Specialty Start Date End Date Buster Riggins, DO PCP - General Family Medicine 06/04/15 Linen Attendant Relationship Specialty Start Date End Date Buster Riggins DO PCP - General Family Medicine 06/04/15 Linen Attendant Relationship Specialty Start Date End Date Buster Riggins, DO PCP - General Family Medicine 06/04/15 Linen Attendant Relationship Specialty Start Date End Date Buster Riggins, DO PCP - General Family Medicine 06/04/15 Linen Attendant Relationship Specialty Start Date End Date VaishnaviBuster DO PCP - General Family Medicine 06/04/15 Linen Attendant Relationship Specialty Start Date End Date AuroraBuster DO PCP - General Family Medicine 06/04/15 Linen Attendant Relationship Specialty Start Date End Date VaishnaviBuster DO PCP - General Family Medicine 06/04/15 Linen Attendant Relationship Specialty Start Date End Date Buster Riggins DO PCP - General Family Medicine 06/04/15 Team Status: Active Member Role Status Dates Dr. Kishore Sam MD Primary Care Provider Acti ve Team Status: Inactive Member Role Status Dates Dr. Reynold Nolasco DO Emergency Provider Active Start: January 20, 2025 End: January 20, 2025 Dr. Kishore Sam MD Primary Care Provider Acti ve Start: January 20, 2025 End: January 20, 2025 Goals (unrecognized section and content) Goals may be documented in a n alternate sectionGoals may be documented in an alternate section INFORMATION SOURCE (unrecogn ized section and content) DATE CREATED AUTHOR 07/06/2024 [facility] DATE CREATED AUTHOR 'S ORGANIZ ATION 01/29/2025 [facility] FOR RECORDS PERTAINING TO PATIENTS WHO ARE OR HAVE BEEN ENROLLED IN A CHEMICAL DEPENDENCY/SUBSTANCEABUSE PROGRAM, SOME INFORMATION MAY BE OMITTED. This clinical summary was aggregated from multiple sources. Caution should be exercised in using it in the provision of clinical care. This summary normalizes information from multiple sources, and as a consequence, information in this document may materially change the coding, format and clinical context of patient data. In addition, data may be omitted in some cases. CLINICAL DECISIONS SHOULD BE BASED ON THE PRIMARY CLINICAL RECORDS. [facility] [employer] provides no warranty or guarantee of the accuracy or completeness of information in this document.
== END | disposition home or self-care (01) ==
LOC: MFPLAB 16:07
PROVIDERS: PCP Family Medicine; Visit Provider Family Medicine
DX: R11.0 Nausea (principal); R10.9 Unspecified abdominal pain; D50.9 Iron deficiency anemia, unspecified; N92.6 Irregular menstruation, unspecified
CPT/HCPCS: 36415; 80053; 82306; 82607; 82728; 83540; 84443; 84702; 85025; 85652